=== PATIENT | male | born 1965 | race Caucasian/White ===

== ENCOUNTER 2018-07-19 05:39 | Outpatient (CLI) | payer OTHER ==
[~2018-07-19] VITALS: Ht 170.2 cm; Wt 73.0 kg
[~2018-07-19 05:39] MED LIST: CEPH-38 PO; NAPR-243 PO; TRM50T PO
[2018-07-19] MEDS ORDERED: OMEP20TA7 PO (15:18)
== END 2018-07-19 15:20 | disposition home or self-care (01) ==
LOC: PREOP 05:39
PROVIDERS: ATTEND Surgery
DX: Z01.818 Encounter for other preprocedural examination (principal)

== ENCOUNTER 2018-07-26 09:52 | Day surgery (SDC) | payer OTHER ==
[~2018-07-26] VITALS: Ht 170.2 cm; Wt 73.0 kg
[~2018-07-26 09:52] MED LIST changes: +OMEP20TA7 PO
[2018-07-26 10:15] VITALS: BP 138/76
[2018-07-26] MEDS ORDERED: LACTATED RINGERS 1,000 ML IV ONE (10:29)
[2018-07-26] MEDS ORDERED: HURRICAINE EXT TUBE (BENZOCAINE) XX PRN (10:30)
[2018-07-26] MEDS ORDERED: MIDAZOLAM 2 MG/2 ML (VERSED) VIAL ONE (10:39)
[2018-07-26] MEDS ORDERED: PROPOFOL INJECTION 50 ML IV ONE (10:39)
--- NOTE | 2018-07-26 10:41 | Progress Note-Pre Operative ---
Pre-Operative Progress Note H&P Reviewed The H&P was reviewed, patient examined and no changes noted. Date Seen by Provider: Jul 26, 2018 Time Seen by Provider: 10:40 Date H&P Reviewed: Jul 26, 2018 Time H&P Reviewed: 10:40 Pre-Operative Diagnosis: gerd, screening colonoscopy BERNARDA FAIR DO Jul 26, 2018 10:41
[2018-07-26] MEDS ORDERED: METO50TA15 PO (10:42)
--- NOTE | 2018-07-26 11:39 | Progress Note-Post Operative ---
Post-Operative Progess Note Surgeon (s)/Administrator Of Home Health (s) Surgeon BERNARDA FAIR DO Administrator Of Home Health: na Pre-Operative Diagnosis gerd, screening colonoscopy Post-Operative Diagnosis erosive esophagitis, hiatal hernia, gastrtitis, colon polyps Procedure & Operative Findings Date of Procedure 07/26/18 Procedure Performed/Findings egd c biopsies, colonoscopy c hot bx polypectomy x 9 Anesthesia Type per cake batter mixer Estimated Blood Loss Estimated blood loss (mL): na Specimens/Packing Specimens Removed antrum, body, ge junction, colon polyps BERNARDA FAIR DO Jul 26, 2018 11:39
[2018-07-26] MEDS ORDERED: SUCR1TAB36 PO (11:42)
--- NOTE | 2018-07-26 11:43 | Discharge Inst-Simple/Standard ---
Discharge Inst-Standard Discharge Medications New, Converted or Re-Newed RX: Transmitted to Pharmacy Patient Instructions/Follow Up Plan of Care/Instructions/FU: 2 weeks Tamanna Activity as Tolerated: Yes Discharge Diet: Regular Diet BERNARDA FAIR DO Jul 26, 2018 11:43
[2018-07-26 11:45] VITALS: BP 110/74
[2018-07-26 11:50] VITALS: BP 110/74
[2018-07-26 12:15] VITALS: BP 128/86
[2018-07-26 12:23] VITALS: BP 128/86
--- NOTE | 2018-07-26 12:23 | NUR ---
TAKING PO FLUIDS WITHOUT PROBLEM, PASSING FLATUS, AND DENIES COMPLAINTS. ALERT AND CHEERFUL. STATES HE IS READY FOR DISMISSAL.
--- NOTE | 2018-07-26 15:50 | Anesthesia-General Post-Op ---
MAC Patient Condition Mental Status/LOC: Same as Preop Cardiovascular: Satisfactory Nausea/Vomiting: Absent Respiratory: Satisfactory Pain: Controlled Complications: Absent Post Op Complications Complications None Follow Up Care/Instructions Patient Instructions None needed. Anesthesiology Discharge Order Discharge Order Patient was seen after the procedure and he was doing well, no complaints, stable vital signs, no apparent adverse anesthesia problems. PATY STOKES DO Jul 26, 2018 15:50
--- NOTE | 2018-07-26 16:21 | OPERATIVE REPORT ---
DATE OF SERVICE: 07/26/2018 PREOPERATIVE DIAGNOSES: Gastroesophageal reflux disease, screening colonoscopy. POSTOPERATIVE DIAGNOSES: Erosive esophagitis, hiatal hernia, gastritis, and colon polyps. PROCEDURES PERFORMED: Esophagogastroduodenoscopy with biopsies, colonoscopy with hot biopsy polypectomy x9. ANESTHESIA: Per BUTTER MELTER. ESTIMATED BLOOD LOSS: None. SPECIMENS REMOVED: Antrum, body, GE junction and colon polyps. INDICATIONS: The patient is a 53-year-old male who has reflux and need for screening colonoscopy. He understands risks and benefits of procedures and wished to proceed with procedure. Consent was signed in the chart. DESCRIPTION OF PROCEDURE: The patient was taken to the endoscopy suite, placed in left lateral recumbent position. Timeout was performed. Scope was inserted in mouth, down the esophagus, stomach and into the duodenum without difficulty. There were no polyps, masses or ulcerations within the duodenum. Scope was slowly retracted back into the stomach where it was further insufflated. Some erythematous changes consistent with gastritis present within the stomach. Biopsy of the antrum and body were obtained. Scope was retroflexed noting a hiatal hernia. No other pathology noted. Scope was returned to its normal position, slowly withdrawn to the distal esophagus, which had appearance of erosive esophagitis. Biopsy was obtained in the distal surface of the GE junction. Scope was then slowly retracted back to completely remove, noting no other pathology. Digital rectal exam was performed. There were no palpable polyps, masses or ulcerations. Scope was inserted in the rectum and advanced all the way to the cecum with minimal difficulty. Prep was adequate. Scope was then slowly retracted back. No polyps, mass or ulcerations within the cecum, ascending, transverse colon. In the descending colon, a small polyp was present, which hot biopsy polypectomy was performed. In the sigmoid colon, there were 6 polyps present, which hot biopsy polypectomy was performed. Scope was continued slowly retracted back. The rectum was also retroflexed noting two more small polyps, which hot biopsy polypectomy was performed on these 2 polyps. Scope was returned to its normal position, slowly withdrawn until completely removed. The patient tolerated procedure well without any complications, taken to recovery room in stable condition. RECOMMENDATIONS: The patient will be started on Carafate 1 g four times a day. We will consider switching omeprazole to Protonix depending on biopsies. The patient will need repeat endoscopy likely in 1 year after the EGD to reevaluate the distal esophagus and we would repeat colonoscopy in 1 to 3 years due to the number of polyps depending on the pathology results. Job ID: [id number] DocumentID: [id number] Dictated Date: 07/26/2018 11:42:00 [employer] Date: 07/26/2018 16:21:30 Dictated By: BERNARDA FAIR DO
== END 2018-07-26 12:23 | disposition home or self-care (01) ==
LOC: ENDO 09:52
PROVIDERS: ATTEND Surgery
DX: Z12.11 Encounter for screening for malignant neoplasm of colon (principal); K63.5 Polyp of colon; K62.1 Rectal polyp; K20.8 Other esophagitis; K44.9 Diaphragmatic hernia without obstruction or gangrene; K29.50 Unspecified chronic gastritis without bleeding; I10 Essential (primary) hypertension; Z87.891 Personal history of nicotine dependence; Z79.899 Other long term (current) drug therapy

== ENCOUNTER 2019-02-25 12:23 | Emergency (ER) | payer OTHER ==
[~2019-02-25] VITALS: Ht 170.2 cm; Wt 72.6 kg
[~2019-02-25 12:23] MED LIST changes: +METO50TA15 PO; +SUCR1TAB36 PO
[2019-02-25] MEDS ORDERED: KETOROLAC 30 MG/ML VIAL IVP STA (12:34)
[2019-02-25] MEDS ORDERED: LACTATED RINGERS 1,000 ML IV ONE ×2 (12:34→13:57)
--- NOTE | 2019-02-25 12:40 | ED Back Pain ---
General Chief Complaint: Back Problems Stated Complaint: BACK PAIN,POSS STONES Source of Information: Patient History of Present Illness Date Seen by Provider: Feb 25, 2019 Time Seen by Provider: 12:29 Initial Comments PT ARRIVES VIA POV FROM WORK--[employer] WENT TO [facility], AND WAS SENT HERE --NO CALL FROM THEM C/O SEVERE LEFT FLANK PAIN SINCE 11:00 AM TODAY C/O NAUSEA AND VOMITED JUST PRIOR TO ARRIVAL NO FEVER NO PROBLEMS URINATING NO HISTORY OF [facility] [place] SN[facility] TAKEN ANYTHING FOR PAIN Other Comments PCP: NONE Allergies and Home Medications Allergies Coded Allergies: codeine (Unverified Adverse Reaction, Mild, NAUSEA, 10/22/08) Home Medications Hydrocodone/Ibuprofen 1 Each Tablet, 1 EACH PO Q4H PRN for PAIN-MODERATE Prescribed by: RODO CLEVELAND on 02/25/191402 Nitrofurantoin Monohyd/M-Cryst 100 Mg Capsule, 100 MG PO BID Prescribed by: RODO CLEVELAND on 02/25/191402 Omeprazole 20 Mg Tablet.dr, 20 MG PO DAILY, (Reported) Ondansetron HCl 8 Mg Tablet, 8 MG PO Q6H Prescribed by: RODO CLEVELAND on 02/25/191402 Tamsulosin HCl 0.4 Mg Cap, 0.4 MG PO DAILY Prescribed by: RODO CLEVELAND on 02/25/191402 Patient Home Medication List Home Medication List Reviewed: Yes Review of Systems Constitutional: no symptoms reported Respiratory: no symptoms reported Cardiovascular: no symptoms reported Gastrointestinal: nausea, vomiting, other (LEFT FLANK PAIN ) Genitourinary: see HPI; No dysuria, No frequency, No hematuria, No hesitancy, No incontinence, No pain; other (LEFT FLANK PAIN ) Musculoskeletal: see HPI, back pain Skin: no symptoms reported Psychiatric/Neurological: No Symptoms Reported Past Yeaotnq-Qulxze-Spmpoy Hx Patient Social History Alcohol Use: Occasionally Uses Number of Drinks Today: 0 Recreational Drug Use: No Smoking Status: Current Everyday Smoker (1 PPD) Type Used: Cigarettes (1 PPD) Recent Foreign Travel: No Contact w/Someone Who Travel: No Recent Hopitalizations: No Seasonal Allergies Seasonal Allergies: No Past Medical History Surgeries: Yes (RIGHT KNEE/LEG FX/ORIF; EGD) Orthopedic Respiratory: No Cardiac: Yes (CURRENTLY NOT TAKING MEDS FOR B/P, STATES DOESNT HAVE MONEY FOR IT NOW) Hypertension Neurological: No Genitourinary: No Gastrointestinal: Yes Gastroesophageal Reflux Musculoskeletal: Yes (RIGHT KNEE/ LEG FX/ ORIF) Endocrine: No HEENT: No Cancer: No Psychosocial: No Integumentary: No Blood Disorders: No Physical Exam Vital Signs Vital Signs - First Documented 02/25/19 12:29 Temp 37.33757 Pulse 96 Resp 18 B/P (MAP) 161/97 (118) Pulse Ox 99 Capillary Refill : Height, Weight, BMI Height: 5'7.00" Weight: 161lbs. 0.0oz. 73.583170pa; 25.2 BMI Method:Stated General Appearance: No Apparent Distress, WD/WN, Other (HOLDING LEFT FLANK) Neck: Normal Inspection Cardiovascular: Regular Rate, Rhythm, No Edema, No Murmur Respiratory: Normal Breath Sounds, No Accessory Muscle Use, No Respiratory Distress Gastrointestinal: Normal Bowel Sounds, No Organomegaly, No Pulsatile Mass, Soft, Tenderness (LEFT FLANK) Back: CVA Tenderness (L) Extremity: Normal Capillary Refill, Normal Inspection, Normal Range of Motion, Non Tender, No Calf Tenderness, No Pedal Edema Neurologic/Psychiatric: Alert, Oriented x3, No Motor/Sensory Deficits, Normal Mood/Affect, 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-XII Norm as Tested Skin: Normal Color, Warm/Dry; No Ecchymosis Progress/Results/Core Measures Results/Orders Lab Results Laboratory Tests Test 02/25/19 12:40 02/25/19 12:50 Range/Units White Blood Count 9.7 4.3-11.0 10^3/uL Red Blood Count 4.43 4.35-5.85 10^6/uL Hemoglobin 14.0 13.3-17.7 G/DL Hematocrit 40 40-54 % Mean Corpuscular Volume 91 80-99 FL Mean Corpuscular Hemoglobin 32 25-34 PG Mean Corpuscular Hemoglobin Concent 35 32-36 G/DL Red Cell Distribution Width 13.9 10.0-14.5 % Platelet Count 422 H 130-400 10^3/uL Mean Platelet Volume 10.1 7.4-10.4 FL Neutrophils (%) (Auto) 59 42-75 % Lymphocytes (%) (Auto) 24 12-44 % Monocytes (%) (Auto) 13 H 0-12 % Eosinophils (%) (Auto) 3 0-10 % Basophils (%) (Auto) 1 0-10 % Neutrophils # (Auto) 5.8 1.8-7.8 X 10^3 Lymphocytes # (Auto) 2.4 1.0-4.0 X 10^3 Monocytes # (Auto) 1.2 H 0.0-1.0 X 10^3 Eosinophils # (Auto) 0.3 0.0-0.3 10^3/uL Basophils # (Auto) 0.1 0.0-0.1 10^3/uL Sodium Level 141 135-145 MMOL/L Potassium Level 4.1 3.6-5.0 MMOL/L Chloride Level 108 H 98-107 MMOL/L Carbon Dioxide Level 20 L 21-32 MMOL/L Anion Gap 13 5-14 MMOL/L Blood Urea Nitrogen 19 H 7-18 MG/DL Creatinine 1.33 H 0.60-1.30 MG/DL Estimat Glomerular Filtration Rate 56 BUN/Creatinine Ratio 14 Glucose Level 94 70-105 MG/DL Calcium Level 9.5 8.5-10.1 MG/DL Corrected Calcium 9.2 8.5-10.1 MG/DL Total Bilirubin 0.4 0.1-1.0 MG/DL Aspartate Amino Transf (AST/SGOT) 19 5-34 U/L Alanine Aminotransferase (ALT/SGPT) 25 0-55 U/L Alkaline Phosphatase 64 40-136 U/L Total Protein 7.6 6.4-8.2 GM/DL Albumin 4.4 3.2-4.5 GM/DL Amylase Level 78 25-125 U/L Lipase 21 8-78 U/L Urine Color YELLOW Urine Clarity CLEAR Urine pH 5 5-9 Urine Specific Barnum 1.025 H 1.016-1.022 Urine Protein 2+ H NEGATIVE Urine Glucose (UA) NEGATIVE NEGATIVE Urine Ketones NEGATIVE NEGATIVE Urine Nitrite NEGATIVE NEGATIVE Urine Bilirubin NEGATIVE NEGATIVE Urine Urobilinogen NORMAL NORMAL MG/DL Urine Leukocyte Esterase 1+ H NEGATIVE Urine RBC (Auto) 4+ H NEGATIVE Urine RBC 10-25 H /HPF Urine WBC RARE /HPF Urine Crystals NONE /LPF Urine Bacteria TRACE /HPF Urine Casts NONE /LPF Urine Mucus SMALL H /LPF Urine Culture Indicated NO My Orders Orders - RODO CLEVELAND DO Ct Abd/Pelvis Wo(Kidney Stone) (02/25/19 12:34) Amylase (02/25/19 12:34) Cbc With Automated Diff (02/25/19 12:34) Comprehensive Metabolic Panel (02/25/19 12:34) Lipase (02/25/19 12:34) Urinalysis (02/25/19 12:34) Acute Abd Series (02/25/19 12:34) Ed Iv/Invasive Line Start (02/25/19 12:34) Ed Iv/Invasive Line Start (02/25/19 12:34) Lactated Ringers (Lr 1000 Ml Iv Solution (02/25/19 12:34) Ondansetron Injection (Zofran Injectio (02/25/19 12:45) Ketorolac Injection (Toradol Injection) (02/25/19 12:34) Fentanyl Injection (Sublimaze Injection (02/25/19 14:00) Tamsulosin Capsule (Flomax Capsule) (02/25/19 14:00) Ondansetron Injection (Zofran Injectio (02/25/19 14:00) Ed Iv/Invasive Line Start (02/25/19 13:57) Lactated Ringers (Lr 1000 Ml Iv Solution (02/25/19 13:57) Medications Given in ED Vital Signs/I&O 02/25/19 02/25/19 12:29 15:10 Temp 37.91540 Pulse 96 84 Resp 18 18 B/P (MAP) 161/97 (118) 152/88 (109) Pulse Ox 99 99 Progress Progress Note : Progress Note TRANSIENT RELIEF WITH TORADOL GIVEN FENTANYL FOR PAIN WITH RELIEF OF PAIN NAUSEA CONTROLLED WITH ZOFRAN Diagnostic Imaging Comments ABDOMEN XRAYS--NO ACUTE PROCESS CT ABDOMEN/ PELVIS--4 MM DISTAL LEFT URETERAL CALCULUS, WITH MILD TO MODERATE LEFT HYDRONEPHROSIS, LEFT LUNG BASE NODULE, HIATAL HERNIA, BENIGN APPEARING LEFT ADRENAL ADENOMA PER RADIOLOGIST REPORTS AT 1352 Reviewed: Reviewed by Me Departure Impression Primary Impression: Left ureteral calculus Additional Impressions: Renal insufficiency LEFT LUNG NODULE NOTED ON CT Disposition: 01 HOME, SELF-CARE Condition: Improved Departure-Patient Inst. Referrals: NO,LOCAL PHYSICIAN (PCP) Primary Care Physician ERIKA BROWNLEE MD Patient Instructions: Acute Kidney Failure (DC), How to Strain Your Urine, Kidney Stones (DC), Pulmonary Nodule Add. Discharge Instructions: LOTS OF CLEAR LIQUIDS--DRINK ENOUGH SO YOU ARE URINATING EVERY 2 HOURS WHILE AWAKE STRAIN ALL URINE--RETURN ANY STONES TO DR. BROWNLEE'S OFFICE FOLLOW UP WITH DR. BROWNLEE IN 2-3 DAYS, RETURN TO ER IF SYMPTOMS WORSEN FOLLOW UP WITH DR OF CHOICE IN 1-2 WEEKS FOR FURTHER EVALUATION OF LUNG NODULE--LIST PROVIDED All discharge instructions reviewed with patient and/or family. Voiced understanding. Scripts Ondansetron HCl (Zofran) 8 Mg Tablet 8 MG PO Q6H for Nausea/Vomiting, #10 TAB Prov: RODO CLEVELAND DO 02/25/19 Nitrofurantoin Monohyd/M-Cryst (Macrobid 100 mg Capsule) 100 Mg Capsule 100 MG PO BID, #20 CAP Prov: RODO CLEVELAND DO 02/25/19 Hydrocodone/Ibuprofen (Hydrocodone-Ibuprofen 7.5-200) 1 Each Tablet 1 EACH PO Q4H PRN for PAIN-MODERATE for 3 Days, #20 TAB Prov: RODO CLEVELAND DO 02/25/19 Tamsulosin HCl (Flomax) 0.4 Mg Cap 0.4 MG PO DAILY, #10 CAP Prov: RODO CLEVELAND DO 02/25/19 Work/School Note: Local Medical Staff Listing RODO CLEVELAND DO Feb 25, 2019 12:40
[2019-02-25] MEDS ORDERED: ONDANSETRON 4 MG/2 ML (SDV) Z0FRAN IVP ONE ×2 (12:45→14:00)
[2019-02-25 12:48] LABS: BASOPHILS # (AUTO) 0.1 10^3/uL (0.0-0.1); BASOPHILS % (AUTO) 1 % (0-10); EOSINOPHILS # (AUTO) 0.3 10^3/uL (0.0-0.3); EOSINOPHILS % (AUTO) 3 % (0-10); HEMATOCRIT 40 % (40-54); LYMPHOCYTES # (AUTO) 2.4 X 10^3 (1.0-4.0); LYMPHOCYTES % (AUTO) 24 % (12-44); MEAN CORPUSCULAR HEMOGLOBIN 32 PG (25-34); MEAN CORPUSCULAR HGB CONC 35 G/DL (32-36); MEAN CORPUSCULAR VOLUME 91 FL (80-99); MEAN PLATELET VOLUME 10.1 FL (7.4-10.4); MONOCYTES # (AUTO) 1.2 X 10^3 (0.0-1.0); MONOCYTES % (AUTO) 13 % (0-12); NEUTROPHILS # (AUTO) 5.8 X 10^3 (1.8-7.8); NEUTROPHILS % (AUTO) 59 % (42-75); PLATELET COUNT 422 10^3/uL (130-400); RED CELL DISTRIBUTION WIDTH 13.9 % (10.0-14.5); WHITE BLOOD COUNT 9.7 10^3/uL (4.3-11.0)
[2019-02-25 13:00] LABS: BILIRUBIN,URINE NEGATIVE (NEGATIVE); CLARITY,URINE CLEAR; COLOR,URINE YELLOW; GLUCOSE, URINE (UA) NEGATIVE (NEGATIVE); KETONES,URINE NEGATIVE (NEGATIVE); LEUKOCYTE ESTERASE ,URINE 1+ (NEGATIVE); NITRITE,URINE NEGATIVE (NEGATIVE); PH,URINE 5 (5-9); PROTEIN,URINE 2+ (NEGATIVE); UROBILINOGEN,URINE NORMAL (NORMAL)
[2019-02-25 13:08] LABS: BACTERIA,URINE TRACE /HPF; WBC,URINE RARE /HPF
[2019-02-25 13:09] LABS: ALBUMIN 4.4 GM/DL (3.2-4.5); BILIRUBIN,TOTAL 0.4 MG/DL (0.1-1.0); CALCIUM 9.5 MG/DL (8.5-10.1); CREATININE SERUM 1.33 MG/DL (0.60-1.30); POTASSIUM 4.1 MMOL/L (3.6-5.0); TOTAL PROTEIN 7.6 GM/DL (6.4-8.2)
--- NOTE | 2019-02-25 13:31 | Diagnostic Imaging Report ---
Acute abdomen at 1:09. Indication: Left flank pain. The accompanying erect PA chest shows heart size to be within normal limits and stable when compared to 09/21/2009. The lungs are clear. There is no sign of failure, pneumonia or pleural effusion and there is no pneumoperitoneum identified. Supine and erect views of the abdomen were obtained. There is gas in both large and small bowel in a nonspecific fashion. There is no evidence for a bowel obstruction. There is no mass, organomegaly or pathological calcification evident. The osseous structures are intact. Impression: 1. The bowel gas pattern is nonspecific. There is no acute abnormality identified. 2. If clinical concern regarding an underlying abnormality persists, then CT of the abdomen pelvis would be recommended for further study. Dictated by: Dictated on workstation # [id number]
--- NOTE | 2019-02-25 13:32 | Diagnostic Imaging Report ---
PROCEDURE: CT urinary tract, rule out kidney stone. TECHNIQUE: Multiple contiguous axial images were obtained through the abdomen and pelvis without the use of intravenous contrast. Auto Exposure Controls were utilized during the CT exam to meet ALARA standards for radiation dose reduction. INDICATION: Posterior back pain. Nausea and vomiting. COMPARISON: None. FINDINGS: The heart is unremarkable. The included lung bases demonstrate a soft tissue nodule in the left lung base measuring 0.8 cm (image 2, series 2). A hiatal hernia is present. A 0.4 cm urolithiasis is seen in the distal left ureter just proximal to the left UVJ (image 83, series 2). Associated [id number] left-sided hydroureteronephrosis is seen. A 2 mm nonobstructing calculus is seen in the mid left kidney. No evidence of hydronephrosis or renal calculi is seen on the right. A nodule in the left adrenal gland measures 3.3 x 3.0 cm and measures -15 Hounsfield units, consistent with an adrenal adenoma. The right adrenal gland is unremarkable. The liver, spleen, and pancreas have a normal noncontrast CT appearance. There is no pathologically enlarged mesenteric or retroperitoneal adenopathy. The bowel loops are nondilated. The appendix is visualized in the right lower quadrant and has a normal appearance. There is no free fluid or free air. The osseous structures are age-appropriate. The bladder is decompressed. There is no free air, loculated collection, or adenopathy in the pelvis. IMPRESSION: 1. Urolithiasis in the distal left ureter measuring 0.4 cm with associated [id number] left-sided hydroureteronephrosis. 2. Nodule in the left lung base measuring 0.[address] chest on an outpatient basis to further evaluate. 3. Benign left adrenal adenoma. 4. Hiatal hernia. Dictated by: Dictated on workstation # [id number]
[2019-02-25] MEDS ORDERED: TAMSULOSIN 0.4 MG (FLOMAX) CAP PO SCH (14:00)
[2019-02-25] MEDS ORDERED: fentaNYL INJECTION 100 MCG/2 ML AMP IVP ONE (14:00)
[2019-02-25] MEDS ORDERED: NITR-65 PO (14:03)
[2019-02-25] MEDS ORDERED: HYDR-87 PO (14:03)
[2019-02-25] MEDS ORDERED: TAMS0.4C98 PO (14:03)
[2019-02-25] MEDS ORDERED: ONDA8TAB6 PO (14:03)
[2019-02-25 15:10] VITALS: BP 152/88
== END 2019-02-25 15:15 | disposition home or self-care (01) ==
LOC: EDUNIT# 12:23 → ER 12:24
DX: N13.2 Hydronephrosis with renal and ureteral calculous obstruction (principal); N28.9 Disorder of kidney and ureter, unspecified; R91.1 Solitary pulmonary nodule; I10 Essential (primary) hypertension; K21.9 Gastro-esophageal reflux disease without esophagitis; F17.210 Nicotine dependence, cigarettes, uncomplicated; Z88.5 Allergy status to narcotic agent; Z91.120 Patient's intentional underdosing of medication regimen due to financial hardship
CPT/HCPCS: 36415; 74022; 74176; 80053; 81000; 82150; 83690; 85025; 96361; 96374; 96375; 96376

== ENCOUNTER 2019-08-13 17:54 | Emergency (ER) | payer OTHER ==
[~2019-08-13] VITALS: Ht 167 cm; Wt 75.0 kg
[~2019-08-13 17:54] MED LIST changes: +HYDR-87 PO; +NITR-65 PO; +ONDA8TAB6 PO; +TMSL.4C PO
[2019-08-13] MEDS ORDERED: ASPIRIN 81 MG CHEW (CHILDREN'S ASA) ONE (17:55)
[2019-08-13] MEDS ORDERED: ONDANSETRON 4 MG/2 ML (SDV) Z0FRAN ONE (18:06)
[2019-08-13 18:08] LABS: BASOPHILS # (AUTO) 0.1 10^3/uL (0.0-0.1); BASOPHILS % (AUTO) 0 % (0-10); EOSINOPHILS % (AUTO) 0 % (0-10); HEMATOCRIT 42 % (40-54); HEMOGLOBIN 14.3 G/DL (13.3-17.7); LYMPHOCYTES # (AUTO) 1.3 X 10^3 (1.0-4.0); LYMPHOCYTES % (AUTO) 10 % (12-44); MEAN CORPUSCULAR HEMOGLOBIN 31 PG (25-34); MEAN CORPUSCULAR HGB CONC 34 G/DL (32-36); MEAN CORPUSCULAR VOLUME 91 FL (80-99); MEAN PLATELET VOLUME 10.2 FL (7.4-10.4); MONOCYTES # (AUTO) 0.7 X 10^3 (0.0-1.0); MONOCYTES % (AUTO) 5 % (0-12); NEUTROPHILS # (AUTO) 11.3 X 10^3 (1.8-7.8); NEUTROPHILS % (AUTO) 84 % (42-75); PLATELET COUNT 460 10^3/uL (130-400); RED CELL DISTRIBUTION WIDTH 13.9 % (10.0-14.5); WHITE BLOOD COUNT 13.4 10^3/uL (4.3-11.0)
[2019-08-13] MEDS ORDERED: ONDANSETRON 4 MG/2 ML (SDV) Z0FRAN IVP ONE (18:15)
[2019-08-13] MEDS ORDERED: ASPIRIN 81 MG CHEW (CHILDREN'S ASA) PO ONE (18:15)
[2019-08-13] MEDS ORDERED: NITROGLYCERIN 0.4 MG SL TABS BTL 25'S SL PRN (18:15)
[2019-08-13] MEDS ORDERED: fentaNYL INJECTION 100 MCG/2 ML AMP ONE (18:16)
[2019-08-13 18:20] LABS: PROTHROMBIN TIME PATIENT 13.2 SEC (12.2-14.7)
[2019-08-13 18:22] LABS: ALANINE AMINOTRANSFERASE 20 U/L (0-55); ALBUMIN 4.8 GM/DL (3.2-4.5); ALKALINE PHOSPHATASE 82 U/L (40-136); BILIRUBIN,TOTAL 0.6 MG/DL (0.1-1.0); BUN/CREATININE RATIO 14; CALCIUM 10.2 MG/DL (8.5-10.1); CARBON DIOXIDE 22 MMOL/L (21-32); CHLORIDE 103 MMOL/L (98-107); GFR ESTIMATED > 60; GLUCOSE 111 MG/DL (70-105); POTASSIUM 3.8 MMOL/L (3.6-5.0); SODIUM 139 MMOL/L (135-145); TOTAL PROTEIN 8.2 GM/DL (6.4-8.2)
[2019-08-13] MEDS ORDERED: fentaNYL INJECTION 100 MCG/2 ML AMP IVP ONE (18:30)
--- NOTE | 2019-08-13 18:32 | ED Abdominal Pain ---
General Chief Complaint: Abdominal/GI Problems Stated Complaint: CP Nursing Triage Note: PT SENT FROM [facility] W ABD PAIN AND EPIGASTRIC PAIN. PT HAD GI COCKTAIL AT URGENT CARE. PT STATES HAS BEEN VOMITING ALL DAY Sepsis Screen: No Definite Risk Source of Information: Patient Exam Limitations: No Limitations History of Present Illness Date Seen by Provider: Aug 13, 2019 Time Seen by Provider: 17:55 Initial Comments Patient arrives the ER by private conveyance with his significant other and chief complaint of waking up this morning with some pain in his epigastric and chest region. He has a history of acid reflux and takes Prilosec daily. He does not have a history of coronary disease but he does smoke about a pack cigarettes per day. He does not take anything for blood pressure hyperlipidemia. No primary familial early onset coronary artery disease. He went to urgent care and they did an EKG which they said was unremarkable and gave him a GI cocktail which she says made it worse. He's had nausea with vomiting all day. He has not had an ything for nausea. He had vomiting on his way over area and no blood in the vomitus. No diarrhea or abdominal surgeries. Last oral intake was dinner last night smoked sausage. Patient had a colonoscopy and upper endoscopy a year ago by Dr. Fair which rev ealed some polyps and he has follow-up in the next year or so. Negative upper GI. Allergies and Home Medications Allergies Coded Allergies: codeine (Unverified Adverse Reaction, Mild, NAUSEA, 10/22/08) Home Medications Hydrocodone/Ibuprofen 1 Each Tablet, 1 EACH PO Q4H PRN for PAIN-MODERATE Prescribed by: RODO CLEVELAND on 02/25/191402 Nitrofurantoin Monohyd/M-Cryst 100 Mg Capsule, 100 MG PO BID Prescribed by: RODO CLEVELAND on 02/25/191402 Omeprazole 20 Mg Tablet.dr, 20 MG PO DAILY, (Reported) Ondansetron HCl 8 Mg Tablet, 8 MG PO Q6H Prescribed by: RODO CLEVELAND on 02/25/191402 Tamsulosin HCl 0.4 Mg Cap, 0.4 MG PO DAILY Prescribed by: RODO CLEVELAND on 02/25/191402 Patient Home Medication List Home Medication List Reviewed: Yes Review of Systems Review of Systems Constitutional: No chills, No diaphoresis EENTM: No Blurred Vision, No Double Vision Respiratory: Denies Shortness of Air Cardiovascular: See HPI, Chest Pain; Denies Edema Gastrointestinal: See HPI, Abdominal Pain (epigastric region); Denies Con stipated, Denies Diarrhea; Nausea, Poor Appetite, Poor Fluid Intake Genitourinary: Denies Burning, Denies Discharge Musculoskeletal: No back pain, No joint pain Skin: No pruritus, No rash Psychiatric/Neurological: Denies Headache, Denies Numbness All Other Systems Reviewed Negative Unless Noted: Yes Past Pkizdag-Iamloy-Nswped Hx Patient Social History Alcohol Use: Occasionally Uses Alcohol Beverage of Choice: Beer (6-12 pack per week.) Recreational Drug Use: No Smoking Status: Current Everyday Smoker Type Used: Cigarettes Recent Foreign Travel: No Contact w/Someone Who Travel: No Recent Infectious Disease Expo: No Recent Hopitalizations: No Physical Abuse: No Sexual Abuse: No Seasonal Allergies Seasonal Allergies: No Past Medical History Surgeries: Yes (RIGHT KNEE/LEG FX/ORIF; EGD) Orthopedic Respiratory: No Cardiac: Yes (CURRENTLY NOT TAKING MEDS FOR B/P, STATES DOESNT HAVE MONEY FOR IT NOW) Hypertension Neurological: No Genitourinary: No Gastrointestinal: Yes Gastroesophageal Reflux Musculoskeletal: Yes (RIGHT KNEE/ LEG FX/ ORIF) Endocrine: No HEENT: No Cancer: No Psychosocial: No Integumentary: No Blood Disorders: No Physical Exam Vital Signs Vital Signs - First Documented 08/13/19 17:55 Temp 37.2 Pulse 109 Resp 18 B/P (MAP) 156/97 (116) Pulse Ox 99 Capillary Refill : Less Than 3 Seconds Height/Weight/BMI Height: 5'7.00" Weight: 160lbs. 0.0oz. [id number]; 26.00 BMI Method:Stated General Appearance: WD/WN, mild distress HEENT: PERRL/EOMI, pharynx normal Neck: full range of motion, supple, normal inspection Respiratory: chest non-tender, lungs clear, normal breath sounds, no respiratory distress, no accessory muscle use Cardiovascular: normal peripheral pulses, regular rate, rhythm Peripheral Pulses: 2+ Radial Pulses (R), 2+ Radial Pulses (L) Gastrointestinal: normal bowel sounds, soft, tenderness (epigastric and right upper quadrant but negative for Kennedy sign.), other (negative for mesenteric signs, psoas sign or heeltap tenderness.) Extremities: normal inspection, no pedal edema, normal capillary refill Neurologic/Psychiatric: alert, normal mood/affect, oriented x 3 Skin: normal color, warm/dry Progress/Results/Core Measures Results/Orders Lab Results Laboratory Tests Test 08/13/19 17:55 08/13/19 20:30 Range/Units White Blood Count 13.4 H 4.3-11.0 10^3/uL Red Blood Count 4.65 4.35-5.85 10^6/uL Hemoglobin 14.3 13.3-17.7 G/DL Hematocrit 42 40-54 % Mean Corpuscular Volume 91 80-99 FL Mean Corpuscular Hemoglobin 31 25-34 PG Mean Corpuscular Hemoglobin Concent 34 32-36 G/DL Red Cell Distribution Width 13.9 10.0-14.5 % Platelet Count 460 H 130-400 10^3/uL Mean Platelet Volume 10.2 7.4-10.4 FL Neutrophils (%) (Auto) 84 H 42-75 % Lymphocytes (%) (Auto) 10 L 12-44 % Monocytes (%) (Auto) 5 0-12 % Eosinophils (%) (Auto) 0 0-10 % Basophils (%) (Auto) 0 0-10 % Neutrophils # (Auto) 11.3 H 1.8-7.8 X 10^3 Lymphocytes # (Auto) 1.3 1.0-4.0 X 10^3 Monocytes # (Auto) 0.7 0.0-1.0 X 10^3 Eosinophils # (Auto) 0.0 0.0-0.3 10^3/uL Basophils # (Auto) 0.1 0.0-0.1 10^3/uL Prothrombin Time 13.2 12.2-14.7 SEC INR Comment 1.0 0.8-1.4 Activated Partial Thromboplast Time 26 24-35 SEC Sodium Level 139 135-145 MMOL/L Potassium Level 3.8 3.6-5.0 MMOL/L Chloride Level 103 98-107 MMOL/L Carbon Dioxide Level 22 21-32 MMOL/L Anion Gap 14 5-14 MMOL/L Blood Urea Nitrogen 14 7-18 MG/DL Creatinine 1.00 0.60-1.30 MG/DL Estimat Glomerular Filtration Rate > 60 BUN/Creatinine Ratio 14 Glucose Level 111 H 70-105 MG/DL Calcium Level 10.2 H 8.5-10.1 MG/DL Corrected Calcium 8.5-10.1 MG/DL Magnesium Level 2.0 1.6-2.4 MG/DL Total Bilirubin 0.6 0.1-1.0 MG/DL Aspartate Amino Transf (AST/SGOT) 19 5-34 U/L Alanine Aminotransferase (ALT/SGPT) 20 0-55 U/L Alkaline Phosphatase 82 40-136 U/L Myoglobin 48.6 10.0-92.0 NG/ML Troponin I < 0.028 < 0.028 <0.028 NG/ML Total Protein 8.2 6.4-8.2 GM/DL Albumin 4.8 H 3.2-4.5 GM/DL Lipase 16 8-78 U/L My Orders Orders - EDIL LONDON Ondansetron Injection (Zofran Injectio (08/13/19 18:06) Fentanyl Injection (Sublimaze Injection (08/13/19 18:30) Lipase (08/13/19 18:34) Ed Iv/Invasive Line Start (08/13/19 18:34) Lactated Ringers (Lr 1000 Ml Iv Solution (08/13/19 18:34) Ct Abdomen/Pelvis W (08/13/19 18:34) Iohexol Injection (Omnipaque 350 Mg/Ml 1 (08/13/19 19:00) Received Contrast (Hold Metformin- Contr (08/13/19 19:00) Ns (Ivpb) (Sodium Chloride 0.9% Ivpb Bag (08/13/19 19:00) Troponin I (08/13/19 20:15) Medications Given in ED Current Medications Medications Dose Ordered Sig/Jasmin Route Start Time Stop Time Status Last Admin Dose Admin Aspirin 81 mg STK-MED ONCE .ROUTE 08/13/19 17:55 08/13/19 18:00 DC 08/13/19 18:02 324 MG Fentanyl Citrate 100 mcg STK-MED ONCE .ROUTE 08/13/19 18:16 08/13/19 18:21 DC 08/13/19 18:24 50 MCG Iohexol 100 ml ONCE ONCE IV 08/13/19 19:00 08/13/19 19:01 DC 08/13/19 19:11 94 ML Lactated Ringer's 1,000 ml @ 0 mls/hr Q0M ONCE IV 08/13/19 18:34 08/13/19 18:35 DC 08/13/19 18:45 1,000 MLS/HR Nitroglycerin 0.4 mg UD PRN SL 08/13/19 18:15 08/13/19 18:15 0.4 MG Ondansetron HCl 8 mg ONCE ONCE IVP 08/13/19 18:15 08/13/19 18:16 DC 08/13/19 18:14 8 MG Sodium Chloride 100 ml ONCE ONCE IV 08/13/19 19:00 08/13/19 19:01 DC 08/13/19 19:11 80 ML Vital Signs/I&O 08/13/19 17:55 Temp 37.2 Pulse 109 Resp 18 B/P (MAP) 156/97 (116) Pulse Ox 99 Blood Pressure Mean: 116 Progress Progress Note #1: Time: 18:31 Progress Note GI cocktail made his pain worse. Peptic ulcer disease, pancreatitis, gallbladder disease, atypical angina?. Gave him 4 tablets of aspirin to chew and swallow and trial nitroglycerin which did nothing for his pain. He has a history of allergy to codeine so to the morphine we'll give him some fentanyl. Pain is much better so plan to get a CT of his abdomen pelvis as well as lipase. Progress Note #2: Time: 20:12 Progress Note The patient's pain and nausea are almost completely resolved. We have offered observation stay versus outpatient follow-up with Dr. Fair who did his endoscopy last year. The patient says he would prefer to go home. We will repeat a delta troponin and if that is negative allow him to follow up outpatient with Dr. Fair to workup gallbladder and upper GI for possible PUD. We did mention his pulmonary nodule that he would need to follow-up with his primary care doctor in the next month or 2 about this. Initial ECG Impression Date: Aug 13, 2019 Initial ECG Impression Time: 17:57 Initial ECG Rate: 102 Initial ECG Rhythm: S.Tach Initial ECG Intervals: QT (496) Initial ECG Impression: Normal Comment Sinus tachycardia without clinically relevant ST elevation or depression. Diagnostic Imaging Diagonstic Imaging: Xray Plain Films/CT/US/NM/MRI: chest (1v) Comments NAME: FELIPE LÓPEZ Alexandra [employer] REC#: [id number] PT STATUS: REG ER : 1965 PHYSICIAN: MALA MISHRA ADMIT DATE: 08/13/19/ER Signed Date of Exam:08/13/19 CHEST 1 VIEW, AP/PA ONLY INDICATION: Chest pain. COMPARISON: Prior examination from 02/25/2019. EXAMINATION: Single view of the chest was obtained. FINDINGS: The heart size, mediastinal configuration, and pulmonary vascularity are within normal limits. There is no pleural effusion, pneumothorax or pneumonia. The osseous structures are unremarkable. IMPRESSION: No acute cardiopulmonary abnormality. Dictated by: Dictated on workstation # [id number] Dict: 08/13/19 1848 Trans: 08/13/191902 [facility] [id number] Interpreted by: SARAHI MUSA MD Electronically signed by: SARAHI MUSA MD 08/13/191902 Reviewed: Reviewed by Co Diagonstic Imaging: CT Plain Films/CT/US/NM/MRI: abdomen, pelvis Comments [facility] [place] NAME: FELIPE LÓPEZ [employer] REC#: [id number] PT STATUS: REG ER : 1965 PHYSICIAN: EDIL LONDON MD ADMIT DATE: 08/13/19/ER Draft Date of Exam:08/13/19 CT ABDOMEN/PELVIS W PROCEDURE: CT abdomen and pelvis with contrast. TECHNIQUE: Multiple contiguous axial images were obtained through the abdomen and pelvis after administration of intravenous contrast. Auto Exposure Controls were utilized during the CT exam to meet ALARA standards for radiation dose reduction. INDICATION: Epigastric pain and vomiting Comparison is made with prior examination from 02/25/2019. FINDINGS: The heart size is normal. The previously seen nodular density in the left lung base which measured 8 mm now measures 3 mm. This may be due to differences in slice location. The mass definitely, however, has not gotten larger. The lung bases are otherwise clear. There is a hiatal hernia. Liver is normal in size. There is a tiny cyst in the right lobe of liver. Gallbladder is unremarkable. There is no biliary duct dilatation. Spleen is small. The pancreas is unremarkable. Note is again made of a low-density left adrenal mass suspect for adrenal adenoma. The kidneys are normal in appearance. The aorta is nonaneurysmal. The bowel gas pattern is nonspecific. The appendix is normal. There is no free air. There is no ascites. There are no focal inflammatory changes. Bladder is normal. There is no pelvic mass, adenopathy or free fluid. There are mild degenerative changes in the spine. IMPRESSION: A 3 mm nodule in the left lung base. Hiatal hernia. Tiny right hepatic cysts No other acute abnormality in the abdomen or pelvis. Dictated on workstation # [id number] Dict: 08/13/191922 Trans: 08/13/191944 [facility] [id number] Interpreted by: SARAHI MUSA MD Electronically signed by: Reviewed: Reviewed by Me Departure Impression Primary Impression: Epigastric abdominal pain Disposition: HOME, SELF-CARE Condition: Improved Departure-Patient Inst. Decision time for Depature: 21:01 Referrals: BERNARDA FAIR DO NO,LOCAL PHYSICIAN (PCP) Primary Care Physician Patient Instructions: Acute Abdomen (Belly Pain) Add. Discharge Instructions: I suspect your having inflammation and irritation of the lining of your stomach or possibly an irritated gallbladder. Dr. Fair can help you work this up over the next week or 2. Return to the ER if you're not able to control your pain with the medicines prescribed plus Tylenol and ibuprofen. Continue taking the Prilosec 20 mg twice a day. Carafate 1 tablet half an hour prior to meals and at bedtime for a total of 4 tablets a day for the next 2 weeks to protect your stomach lining. If you have nausea take one tablet of Zofran every 6 hours as needed. If you have fevers especially above 102.5 Fahrenheit then I would ask you return to the ER. All discharge instructions reviewed with patient and/or family. Voiced understanding. Scripts Ondansetron (Ondansetron Odt) 4 Mg Tab.rapdis 4 MG PO Q6H PRN for NAUSEA/VOMITING-1ST LINE, #15 TAB 0 Refills Prov: EDIL LONDON 08/13/19 Sucralfate (Carafate) 1 Gm Tablet 1 GM PO QIDACHS for 14 Days, #56 TAB 0 Refills Prov: EDIL LONDON 08/13/19 Omeprazole (Omeprazole) 20 Mg Capsule.dr 20 MG PO BID for 30 Days, #60 CAP 0 Refills Prov: EDIL LONDON 08/13/19 Copy Copies To 1: BERNARDA FAIR DO EDIL LONDON Aug 13, 2019 18:32
[2019-08-13] MEDS ORDERED: LACTATED RINGERS 1,000 ML IV ONE (18:34)
--- NOTE | 2019-08-13 18:51 | Diagnostic Imaging Report ---
INDICATION: Chest pain. COMPARISON: Prior examination from 02/25/2019. EXAMINATION: Single view of the chest was obtained. FINDINGS: The heart size, mediastinal configuration, and pulmonary vascularity are within normal limits. There is no pleural effusion, pneumothorax or pneumonia. The osseous structures are unremarkable. IMPRESSION: No acute cardiopulmonary abnormality. Dictated by: Dictated on workstation # [id number]
[2019-08-13] MEDS ORDERED: IOHEXOL 350 MG/ML 100 ML (OMNIPAQUE 350) VIAL IV ONE (19:00)
[2019-08-13] MEDS ORDERED: NS 100 ML (IVPB) BAG IV ONE (19:00)
[2019-08-13] MEDS ORDERED: HOLD METFORMIN - RECEIVED CONTRAST 20 ML VIAL IV SCH (19:00)
--- NOTE | 2019-08-13 19:46 | Diagnostic Imaging Report ---
PROCEDURE: CT abdomen and pelvis with contrast. TECHNIQUE: Multiple contiguous axial images were obtained through the abdomen and pelvis after administration of intravenous contrast. Auto Exposure Controls were utilized during the CT exam to meet ALARA standards for radiation dose reduction. INDICATION: Epigastric pain and vomiting Comparison is made with prior examination from 02/25/2019. FINDINGS: The heart size is normal. The previously seen nodular density in the left lung base which measured 8 mm now measures 3 mm. This may be due to differences in slice location. The mass definitely, however, has not gotten larger. The lung bases are otherwise clear. There is a hiatal hernia. Liver is normal in size. There is a tiny cyst in the right lobe of liver. Gallbladder is unremarkable. There is no biliary duct dilatation. Spleen is small. The pancreas is unremarkable. Note is again made of a low-density left adrenal mass suspect for adrenal adenoma. The kidneys are normal in appearance. The aorta is nonaneurysmal. The bowel gas pattern is nonspecific. The appendix is normal. There is no free air. There is no ascites. There are no focal inflammatory changes. Bladder is normal. There is no pelvic mass, adenopathy or free fluid. There are mild degenerative changes in the spine. IMPRESSION: A 3 mm nodule in the left lung base. Hiatal hernia. Tiny right hepatic cysts No other acute abnormality in the abdomen or pelvis. Dictated by: Dictated on workstation # [id number]
[2019-08-13] MEDS ORDERED: ONDA4TAB11 PO (21:08)
[2019-08-13] MEDS ORDERED: SUCR1TAB36 PO (21:08)
[2019-08-13] MEDS ORDERED: OMEP20CA18 PO (21:08)
[2019-08-13 21:40] VITALS: BP 135/90
== END 2019-08-13 21:40 | disposition home or self-care (01) ==
LOC: ER 17:54 → EDUNIT# 17:54 → ER 21:40
DX: R10.13 Epigastric pain (principal); K21.9 Gastro-esophageal reflux disease without esophagitis; F17.210 Nicotine dependence, cigarettes, uncomplicated; Z88.5 Allergy status to narcotic agent
CPT/HCPCS: 36415; 71045; 74177; 80053; 83690; 83735; 83874; 84484; 85025; 85610; 85730; 93005; 93041

== ENCOUNTER 2019-08-15 23:59 | Observation (INO) | payer OTHER ==
[~2019-08-15] VITALS: Ht 167.4 cm; Wt 73.4 kg
[~2019-08-15 23:59] MED LIST changes: +OMEP20CA18 PO; +ONDA4TAB11 PO
[2019-08-16] VITALS (10 sets, daily range): BP systolic 73–127; BP diastolic 41–79
[2019-08-16 00:30] LABS: BASOPHILS # (AUTO) 0.1 10^3/uL (0.0-0.1); BASOPHILS % (AUTO) 1 % (0-10); EOSINOPHILS # (AUTO) 0.3 10^3/uL (0.0-0.3); EOSINOPHILS % (AUTO) 2 % (0-10); HEMATOCRIT 39 % (40-54); HEMOGLOBIN 13.3 G/DL (13.3-17.7); LYMPHOCYTES # (AUTO) 2.6 X 10^3 (1.0-4.0); LYMPHOCYTES % (AUTO) 16 % (12-44); MEAN CORPUSCULAR HEMOGLOBIN 31 PG (25-34); MEAN CORPUSCULAR HGB CONC 34 G/DL (32-36); MEAN CORPUSCULAR VOLUME 92 FL (80-99); MEAN PLATELET VOLUME 10.5 FL (7.4-10.4); MONOCYTES # (AUTO) 1.6 X 10^3 (0.0-1.0); MONOCYTES % (AUTO) 10 % (0-12); NEUTROPHILS # (AUTO) 11.2 X 10^3 (1.8-7.8); NEUTROPHILS % (AUTO) 72 % (42-75); PLATELET COUNT 419 10^3/uL (130-400); RED CELL DISTRIBUTION WIDTH 13.8 % (10.0-14.5); WHITE BLOOD COUNT 15.6 10^3/uL (4.3-11.0)
[2019-08-16] MEDS ORDERED: ONDANSETRON 4 MG/2 ML (SDV) Z0FRAN IVP ONE (00:30)
[2019-08-16] MEDS ORDERED: fentaNYL INJECTION 100 MCG/2 ML AMP IVP ONE (00:30)
[2019-08-16] MEDS ORDERED: FAMOTIDINE 20MG/2ML IV (PEPCID) IVP ONE (00:30)
[2019-08-16 00:42] LABS: ALANINE AMINOTRANSFERASE 20 U/L (0-55); ALBUMIN 4.3 GM/DL (3.2-4.5); ALKALINE PHOSPHATASE 62 U/L (40-136); BILIRUBIN,TOTAL 0.4 MG/DL (0.1-1.0); BUN/CREATININE RATIO 16; CALCIUM 9.4 MG/DL (8.5-10.1); CARBON DIOXIDE 21 MMOL/L (21-32); CHLORIDE 105 MMOL/L (98-107); GFR ESTIMATED > 60; GLUCOSE 110 MG/DL (70-105); LIPASE 20 U/L (8-78); POTASSIUM 3.6 MMOL/L (3.6-5.0); SODIUM 140 MMOL/L (135-145); TOTAL PROTEIN 7.2 GM/DL (6.4-8.2)
[2019-08-16 00:59] LABS: BAND NEUTROPHILS 2 %; LYMPHOCYTES % (MANUAL) 16 %; MONOCYTES % (MANUAL) 9 %; NEUTROPHILS % (MANUAL) 73 %; RBC MORPH NORMAL
[2019-08-16 01:19] LABS: BILIRUBIN,URINE NEGATIVE (NEGATIVE); CLARITY,URINE CLEAR; COLOR,URINE YELLOW; GLUCOSE, URINE (UA) NEGATIVE (NEGATIVE); KETONES,URINE TRACE (NEGATIVE); LEUKOCYTE ESTERASE ,URINE NEGATIVE (NEGATIVE); NITRITE,URINE NEGATIVE (NEGATIVE); PROTEIN,URINE NEGATIVE (NEGATIVE)
[2019-08-16 01:26] LABS: BACTERIA,URINE FEW /HPF; SQUAMOUS EPITHELIAL CELL,UR 0-2 /HPF
[2019-08-16] MEDS ORDERED: morphine INJ 10 MG/ML 1ML (SYR OR VIAL) IVP STA (01:33)
--- NOTE | 2019-08-16 01:42 | ED Abdominal Pain ---
General Chief Complaint: Abdominal/GI Problems Stated Complaint: ABD PAIN Nursing Triage Note: C/O ABD PAIN AND NAUSEA STARTED AT 1945 THSI EVENING AFTER TAKING ZOFRAN AT HOME. Sepsis Screen: No Definite Risk Source of Information: Patient, Old Records Exam Limitations: No Limitations History of Present Illness Date Seen by Provider: Aug 16, 2019 Time Seen by Provider: 00:09 Initial Comments This 54-year-old man presents to the emergency room with complaints of upper abdominal pain and vomiting that started around 18:00 tonight. He had similar episodes in recent days and was seen in the emergency room on August 13. He had a thorough workup at that time and was ultimately discharged. Workup included CT of the abdomen and pelvis and a cardiac rule out. Pain seems to be most focused in the epigastrium where he is tender just inferior to the xiphoid. He has a history of hiatal hernia, erosive esophagitis, gastritis, colon polyps, and GERD and intends to follow-up with Dr. Nolen. He has been taking an antacid therapy but continues to struggle with pain. He really felt fairly well yesterday except for some mild nausea symptoms came back today more severe than they were on August 13. He denies diarrhea has not had a bowel movement since August 13. He is afebrile. He reports drinking about a 12 pack of beer per week. He has had no alcohol since Wednesday. Allergies and Home Medications Allergies Coded Allergies: codeine (Unverified Adverse Reaction, Mild, NAUSEA, 08/16/19) Home Medications Hydrocodone/Ibuprofen 1 Each Tablet, 1 EACH PO Q4H PRN for PAIN-MODERATE Prescribed by: RODO CLEVELAND on 02/25/19 140 Nitrofurantoin Monohyd/M-Cryst 100 Mg Capsule, 100 MG PO BID Prescribed by: RODO CLEVELAND on 02/25/191402 Omeprazole 20 Mg Tablet.dr, 20 MG PO DAILY, (Reported) Omeprazole 20 Mg Capsule.dr, 20 MG PO BID Prescribed by: EDIL LONDON on 08/13/192107 Ondansetron 4 Mg Tab.rapdis, 4 MG PO Q6H PRN for NAUSEA/VOMITING-1ST LINE Prescribed by: EDIL LONDON on 08/13/192107 Ondansetron HCl 8 Mg Tablet, 8 MG PO Q6H Prescribed by: RODO CLEVELAND on 02/25/19 1403 Sucralfate 1 Gm Tablet, 1 GM PO QIDACHS Prescribed by: EDIL LONDON on 08/13/192107 Tamsulosin HCl 0.4 Mg Cap, 0.4 MG PO DAILY Prescribed by: RODO CLEVELAND on 02/25/19 1403 Patient Home Medication List Home Medication List Reviewed: Yes Review of Systems Review of Systems Constitutional: no symptoms reported EENTM: No Symptoms Reported Respiratory: No Symptoms Reported Cardiovascular: No Symptoms Reported Gastrointestinal: See HPI Genitourinary: No Symptoms Reported Musculoskeletal: no symptoms reported Skin: no symptoms reported Psychiatric/Neurological: No Symptoms Reported Endocrine: No Symptoms Reported Past Ecazlhz-Hgcofl-Sbhpbo Hx Past Med/Social Hx: Reviewed Nursing Past Med/Soc Hx Patient Social History Alcohol Use: Regular Use Number of Drinks Today: AA Alcohol Beverage of Choice: Beer Recreational Drug Use: No Smoking Status: Current Everyday Smoker Type Used: Cigarettes Recent Foreign Travel: No Contact w/Someone Who Travel: No Recent Infectious Disease Expo: No Recent Hopitalizations: No Physical Abuse: No Sexual Abuse: No Mistreated: No Fear: No Seasonal Allergies Seasonal Allergies: No Past Medical History Surgeries: Yes (RIGHT KNEE/LEG FX/ORIF; EGD) Orthopedic Respiratory: No Cardiac: Yes (CURRENTLY NOT TAKING MEDS FOR B/P, STATES DOESNT HAVE MONEY FOR IT NOW) Hypertension Neurological: No Genitourinary: No Gastrointestinal: Yes (gastritis, erosive esophagitis) Gastroesophageal Reflux, Polyps, Hiatal Hernia Musculoskeletal: Yes (RIGHT KNEE/ LEG FX/ ORIF) Endocrine: No HEENT: No Cancer: No Psychosocial: No Integumentary: No Blood Disorders: No Physical Exam Vital Signs Vital Signs - First Documented 08/16/19 00:11 Temp 38.0 Pulse 92 Resp 24 B/P (MAP) 136/80 (98) Pulse Ox 100 O2 Delivery Room Air Capillary Refill : Less Than 3 Seconds Height/Weight/BMI Height: 5'7.00" Weight: 160lbs. 0.0oz. 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, no motor/sensory deficits, alert, normal mood/affect, oriented x 3 Skin: normal color, warm/dry Progress/Results/Core Measures Results/Orders Lab Results Laboratory Tests Test 08/16/19 00:15 08/16/19 01:10 Range/Units White Blood Count 15.6 H 4.3-11.0 10^3/uL Red Blood Count 4.24 L 4.35-5.85 10^6/uL Hemoglobin 13.3 13.3-17.7 G/DL Hematocrit 39 L 40-54 % Mean Corpuscular Volume 92 80-99 FL Mean Corpuscular Hemoglobin 31 25-34 PG Mean Corpuscular Hemoglobin Concent 34 32-36 G/DL Red Cell Distribution Width 13.8 10.0-14.5 % Platelet Count 419 H 130-400 10^3/uL Mean Platelet Volume 10.5 H 7.4-10.4 FL Neutrophils (%) (Auto) 72 42-75 % Lymphocytes (%) (Auto) 16 12-44 % Monocytes (%) (Auto) 10 0-12 % Eosinophils (%) (Auto) 2 0-10 % Basophils (%) (Auto) 1 0-10 % Neutrophils # (Auto) 11.2 H 1.8-7.8 X 10^3 Lymphocytes # (Auto) 2.6 1.0-4.0 X 10^3 Monocytes # (Auto) 1.6 H 0.0-1.0 X 10^3 Eosinophils # (Auto) 0.3 0.0-0.3 10^3/uL Basophils # (Auto) 0.1 0.0-0.1 10^3/uL Neutrophils % (Manual) 73 % Lymphocytes % (Manual) 16 % Monocytes % (Manual) 9 % Band Neutrophils 2 % Blood Morphology Comment NORMAL Sodium Level 140 135-145 MMOL/L Potassium Level 3.6 3.6-5.0 MMOL/L Chloride Level 105 98-107 MMOL/L Carbon Dioxide Level 21 21-32 MMOL/L Anion Gap 14 5-14 MMOL/L Blood Urea Nitrogen 16 7-18 MG/DL Creatinine 1.00 0.60-1.30 MG/DL Estimat Glomerular Filtration Rate > 60 BUN/Creatinine Ratio 16 Glucose Level 110 H 70-105 MG/DL Calcium Level 9.4 8.5-10.1 MG/DL Corrected Calcium 9.2 8.5-10.1 MG/DL Total Bilirubin 0.4 0.1-1.0 MG/DL Aspartate Amino Transf (AST/SGOT) 19 5-34 U/L Alanine Aminotransferase (ALT/SGPT) 20 0-55 U/L Alkaline Phosphatase 62 40-136 U/L Troponin I < 0.028 <0.028 NG/ML C-Reactive Protein High Sensitivity 0.10 0.00-0.50 MG/DL Total Protein 7.2 6.4-8.2 GM/DL Albumin 4.3 3.2-4.5 GM/DL Lipase 20 8-78 U/L Urine Color YELLOW Urine Clarity CLEAR Urine pH 8.0 5-9 Urine Specific [place] 1.020 1.016-1.022 Urine Protein NEGATIVE NEGATIVE Urine Glucose (UA) NEGATIVE NEGATIVE Urine Ketones TRACE H NEGATIVE Urine Nitrite NEGATIVE NEGATIVE Urine Bilirubin NEGATIVE NEGATIVE Urine Urobilinogen 0.2 < = 1.0 MG/DL Urine Leukocyte Esterase NEGATIVE NEGATIVE Urine RBC (Auto) NEGATIVE NEGATIVE Urine RBC NONE /HPF Urine WBC NONE /HPF Urine Squamous Epithelial Cells 0-2 /HPF Urine Crystals NONE /LPF Urine Bacteria FEW H /HPF Urine Casts NONE /LPF Urine Mucus MODERATE H /LPF Urine Culture Indicated NO My Orders Orders - JUANITO PACE MD Cbc With Automated Diff (08/16/19 00:19) Comprehensive Metabolic Panel (08/16/19 00:19) Lipase (08/16/19 00:19) Troponin I (08/16/19 00:19) Ed Iv/Invasive Line Start (08/16/19:19) Ekg Tracing (08/16/19:19) Monitor-Rhythm Ecg Trace Only (08/16/19 00:19) Famotidine Injection (Pepcid Injection) (08/16/19 00:30) Ondansetron Injection (Zofran Injectio (08/16/19 00:30) Fentanyl Injection (Sublimaze Injection (08/16/19 00:30) Manual Differential (08/16/19 00:15) Ua Culture If Indicated (08/16/19 00:39) Hs C Reactive Protein (08/16/19 01:04) Morphine Injection (Morphine Injection (08/16/19 01:33) Acute Abd Series (08/16/19 01:33) Medications Given in ED Current Medications Medications Dose Ordered Sig/Jasmin Route Start Time Stop Time Status Last Admin Dose Admin Famotidine 20 mg ONCE ONCE IVP 08/16/19 00:30 08/16/19 00:31 DC 08/16/19 00:26 20 MG Fentanyl Citrate 50 mcg ONCE ONCE IVP 08/16/19 00:30 08/16/19 00:31 DC 08/16/19 00:26 50 MCG Ondansetron HCl 8 mg ONCE ONCE IVP 08/16/19 00:30 08/16/19 00:31 DC 08/16/19 00:26 8 MG Vital Signs/I&O 08/16/19 00:11 Temp 38.0 Pulse 92 Resp 24 B/P (MAP) 136/80 (98) Pulse Ox 100 O2 Delivery Room Air Blood Pressure Mean: 98 Progress Progress Note : Progress Note Patient was initially treated with fentanyl, Pepcid, and Zofran. This provided some relief but not sufficient relief. Labs revealed a leukocytosis. Patient had a thorough workup on the prior visit. Workup was extended during this ER visit with acute abdominal series which failed to reveal any obstruction or free air. He initially had a temperature of 38.0. This was borderline for fever. However, a repeat temperature at 01:57 was only 36.6. He had significant leukocytosis but CRP was very low. Patient does not appear to be septic. He is being admitted for symptom control. He required a second dose of opioids with a morphine injection to control his pain. He was still nauseated after Zofran. I have discussed the case with Dr. CHRISTIAN and Dr. Nolen. We will keep him nothing by mouth and do a stat gallbladder ultrasound in the morning. Dr. Nolen will evaluate his appropriateness for other studies. Diagnostic Imaging Diagonstic Imaging: Xray Plain Films/CT/US/NM/MRI: chest, abdomen Comments Acute abdominal series viewed by me. Report not yet available. No acute abnormalities appreciated. Departure Communication (Admissions) Time/Spoke to Admitting Phy: 01:45 Dr. Christian Time/Spoke to Consulting Phy: 01:54 Dr. Nolen Impression Primary Impression: Upper abdominal pain Additional Impressions: Nausea and vomiting Qualified Codes: R11.2 - Nausea with vomiting, unspecified Leukocytosis Qualified Codes: D72.829 - Elevated white blood cell count, unspecified Disposition: ADMITTED INPATIENT Condition: Stable Admissions Decision to Admit Reason: Admit from ER (General) Decision to Admit/Date: Aug 16, 2019 Time/Decision to Admit Time: 01:40 Departure-Patient Inst. Referrals: NO,LOCAL PHYSICIAN (PCP/Family) Primary Care Physician JUANITO PACE MD Aug 16, 2019 01:42
--- NOTE | 2019-08-16 02:33 | NUR ---
ATTEMPTED TO CALL REPORT TO ELLA KERN, SPOKE TO DOMINGA KERN TO PASS MESSAGE TO CALL THE ER FOR REPORT
--- NOTE | 2019-08-16 03:00 | NUR ---
"FELIPE LÓPEZ admitted to room 420-1, with an admitting diagnosis of EPIGASTRIC PAIN| NAUSEA & VOMITING|LEUKOCYTOSIS, on 08/16/19 from ED via WC, accompanied by STAFF.FELIPE LÓPEZ introduced to surroundings, call light, bed controls, phone, TV, temperature control, lights, meal times, smoking policy, visitor policy, side rail policy, bathrooms and showers. Patient Rights given to patient in the handbook.FELIPE LÓPEZ verbalizes understanding that [facility] is not responsible for the loss or damage to any personal effects or valuables that are kept in the patients posession during their hospitalization. The following Patient Care Plans were discussed with the : Discharge Planning, EPIGASTRIC PAIN| NAUSEA & VOMITING|LEUKOCYTOSIS. FELIPE LÓPEZ verbalizes understanding of Interdisciplinary Patient Education. Patient and/or family were informed about the Rapid Response Team and its purpose."
[2019-08-16] MEDS ORDERED: PROMETHAZINE INJ 25 MG/ML (PHENERGAN) AMP IV PRN (04:30)
[2019-08-16] MEDS ORDERED: ONDANSETRON 4 MG/2 ML (SDV) Z0FRAN IV PRN (04:30)
[2019-08-16] MEDS ORDERED: morphine INJ 4 MG/ML 1 ML (VIAL/SYRINGE) IV PRN (04:30)
[2019-08-16] MEDS: D5 1/2 NS W/KCL 20 MEQ/L 1,000 ML IV SCH ×2 (06:23→14:14)
--- NOTE | 2019-08-16 07:45 | Diagnostic Imaging Report ---
Indication: Abdominal pain, nausea vomiting Abdomen series PA chest, supine and upright abdominal images are obtained Lungs are clear. There is no intraperitoneal free air. Bowel gas pattern is normal. There are no pathologic masses or calcifications. IMPRESSION: No acute abnormalities in the abdomen Dictated by: Dictated on workstation # [id number]
[2019-08-16] MEDS ORDERED: OMEP40CA27 PO (08:13)
[2019-08-16] MEDS ORDERED: SUCR1TAB PO (08:13)
[2019-08-16] MEDS ORDERED: ONDA4TAB11 PO (08:13)
--- NOTE | 2019-08-16 08:15 | NUR ---
SPOKE WITH THE PT (HE HAD HIS BOTTLES) WELL GOING THRU THE EXT MED HISTORY TO COMPLETE THE MED REC. OTC MED: SLEEP AID
[2019-08-16] MEDS ORDERED: DIPH50CA40 PO (08:18)
--- NOTE | 2019-08-16 08:34 | Diagnostic Imaging Report ---
PROCEDURE: US Gallbladder. TECHNIQUE: Multiple real-time grayscale images were obtained over the right upper quadrant in various projections. INDICATION: Epigastric pain Liver parenchyma is homogeneous with normal echotexture. Portal vein is patent with hepatopedal flow. Gallbladder is clear with no stones or wall thickening. Pancreas is obscured by bowel gas. Right kidney measures 10 cm in length and appears normal. There is no ascites. IMPRESSION: Negative gallbladder sonogram Dictated by: Dictated on workstation # [id number]
[2019-08-16] MEDS: FAMOTIDINE 20MG/2ML IV (PEPCID) IVP SCH ×2 (09:44→21:43)
[2019-08-16] MEDS: PANTOPRAZOLE 40 MG (PROTONIX) VIAL IV SCH (09:44)
--- NOTE | 2019-08-16 09:47 | Consultation - Surgery ---
[facility] 08/16/19 0947: History of Present Illness History of Present Illness Patient Consulted On(altaf/time) 08/16/19 09:40 Date Seen by Provider: Aug 16, 2019 Time Seen by Provider: 08:59 Reason for Visit: Epigastric pain, N/V History of Present Illness This is a 54 y/o male w/ PMH of Erosive esophagitis, GERD, and hiatal hernia who presented to the ED with upper abd pain and N/V (clear emesis) which onset 4 days ago. states the pain is non-radiating and sharp in nature. Denies any F, chills, diarrhea, constipation, melena, hematochezia, hematemesis, SOB, CP, or palpitations. Denies any hx of pancreatitis or GB issues. Pt has about a 12pack of beer every week (2-3 beer per night) along w/ 3-4 beers every other Wednesday when he goes out with his sister. Pt takes Omeprazole at home which have been able to control his sx until the last few days. Does not take Carafate. Pt does not regularly f/u w a doctor and cannot remember the last time he had routine labs checked. Pt is pain free at the time of evaluation; states "the pain went away after the pain shot they gave me just now". last episode of vomiting was last night. Pt has been NPO since 7pm last night. Allergies and Home Medications Allergies Coded Allergies: codeine (Unverified Adverse Reaction, Mild, NAUSEA, 08/16/19) Home Medications Diphenhydramine HCl 50 Mg Capsule, 50 MG PO HS PRN for SLEEP, (Reported) Omeprazole 40 Mg Capsule.dr, 40 MG PO DAILY, (Reported) Ondansetron 4 Mg Tab.rapdis, 4 MG PO Q6H PRN for NAUSEA/VOMITING-1ST LINE, (Reported) Sucralfate 1 Gm Tablet, 1 GM PO QIDACHS, (Reported) Past Ezvebii-Vksxhm-Ivvzca Hx Patient Social History Alcohol Use: Regular Use Number of Drinks Today: AA Recreational Drug Use: No Smoking Status: Current Everyday Smoker Type Used: Cigarettes Recent Foreign Travel: No Contact w/Someone Who Travel: No Recent Infectious Disease Expo: No Recent Hopitalizations: No Seasonal Allergies Seasonal Allergies: No Surgeries History of Surgeries: Yes (RIGHT KNEE/LEG FX/ORIF; EGD) Surgeries: Orthopedic Respiratory History of Respiratory Disorde: No Cardiovascular History of Cardiac Disorders: Yes (CURRENTLY NOT TAKING MEDS FOR B/P, STATES DOESNT HAVE MONEY FOR IT NOW) Cardiac Disorders: Hypertension Neurological History of Neurological Disord: No Genitourinary History of Genitourinary Disor: No Gastrointestinal History of Gastrointestinal Di: Yes (gastritis, erosive esophagitis) Gastrointestinal Disorders: Gastroesophageal Reflux, Polyps, Hiatal Hernia Musculoskeletal History of Musculoskeletal Dis: Yes (RIGHT KNEE/ LEG FX/ ORIF) Endocrine History of Endocrine Disorders: No HEENT History of HEENT Disorders: No Cancer History of Cancer: No Psychosocial History of Psychiatric Problem: No Integumentary History of Skin or Integumenta: No Blood Transfusions History of Blood Disorders: No Review of Systems-General Constitutional: No chills, No fever Respiratory: No cough, No dyspnea on exertion Cardiovascular: No chest pain, No edema, No palpitations Gastrointestinal: abdominal pain; No diarrhea, No dysphagia, No hematemesis, No nausea, No vomiting Physical Exam-General Problems Physical Exam Vital Signs Vital Signs - First Documented 08/16/19 00:11 Temp 38.0 Pulse 92 Resp 24 B/P (MAP) 136/80 (98) Pulse Ox 100 O2 Delivery Room Air Capillary Refill : Less Than 3 Seconds General Appearance: WD/WN, no apparent distress HEENT: PERRL/EOMI Neck: non-tender, normal inspection Respiratory: chest non-tender, no respiratory distress, no accessory muscle use Cardiovascular: regular rate, rhythm, no JVD Gastrointestinal: non tender, soft, no pulsatile mass; No distended, No guarding, No rebound, No tenderness Back: normal inspection, no CVA tenderness Extremities: no pedal edema Neurologic/Psychiatric: alert, normal mood/affect, oriented x 3 Skin: normal color, warm/dry Lymphatic: no adenopathy Data Review Labs Laboratory Tests 08/16/19 00:15: White Blood Count 15.6H, Red Blood Count 4.24L, Hemoglobin 13.3, Hematocrit 39L, Mean Corpuscular Volume 92, Mean Corpuscular Hemoglobin 31, Mean Corpuscular Hemoglobin Concent 34, Red Cell Distribution Width 13.8, Platelet Count 419H, Mean Platelet Volume 10.5H, Neutrophils (%) (Auto) 72, Lymphocytes (%) (Auto) 16, Monocytes (%) (Auto) 10, Eosinophils (%) (Auto) 2, Basophils (%) (Auto) 1, Neutrophils # (Auto) 11.2H, Lymphocytes # (Auto) 2.6, Monocytes # (Auto) 1.6H, Eosinophils # (Auto) 0.3, Basophils # (Auto) 0.1, Neutrophils % (Manual) 73, Lymphocytes % (Manual) 16, Monocytes % (Manual) 9, Band Neutrophils 2, Blood Morphology Comment NORMAL, Sodium Level 140, Potassium Level 3.6, Chloride Level 105, Carbon Dioxide Level 21, Anion Gap 14, Blood Urea Nitrogen 16, Creatinine 1.00, Estimat Glomerular Filtration Rate > 60, BUN/Creatinine Ratio 16, Glucose Level 110H, Calcium Level 9.4, Corrected Calcium 9.2, Total Bilirubin 0.4, Aspartate Amino Transf (AST/SGOT) 19, Alanine Aminotransferase (ALT/SGPT) 20, Alkaline Phosphatase 62, Troponin I < 0.028, C-Reactive Protein High Sensitivity 0.10, Total Protein 7.2, Albumin 4.3, Lipase 20 08/16/19 01:10: Urine Color YELLOW, Urine Clarity CLEAR, Urine pH 8.0, Urine Specific [place] 1.020, Urine Protein NEGATIVE, Urine Glucose (UA) NEGATIVE, Urine Ketones TRACEH , Urine Nitrite NEGATIVE, Urine Bilirubin NEGATIVE, Urine Urobilinogen 0.2, Urine Leukocyte Esterase NEGATIVE, Urine RBC (Auto) NEGATIVE, Urine RBC NONE, Urine WBC NONE, Urine Squamous Epithelial Cells 0-2, Urine Crystals NONE, Urine Bacteria FEWH, Urine Casts NONE, Urine Mucus MODERATEH, Urine Culture Indicated NO Assessment/Plan Assessment/Plan Assessment/Plan Acute onset upper abdominal Pain Nausea and non-bilious, non-bloody vomiting Esophagitis and GERD Hiatal hernia NPO, advance to clear liquid diet as tolerated PPI and Carafate IVF replacement Pain control U/S negative for stones and acute inflammation Negative lipase Will do EGD today Clinical Quality Measures DVT/VTE Risk/Contraindication: Risk Factor Score Per Nursin RFS Level Per Nursing on Admit: 1=Low/No VTE PPX EMMANUEL NOLEN DO 08/16/191951: History of Present Illness History of Present Illness History of Present Illness 54 year old male with epigastric abdominal pain that is sharp and nonradiating. has had for about 4 days. Pain moderate to severe. He has been having nausea and some episode of clear vomiting. Pain medication has helped his pain. Nothing seems to make worse. Last egd was Jul 2018 which he had erosive esophagitis. Had ct scan abd/pelvis 08/13/19 showing small hepatic cyst a small lung nodule a hiatal hernia, no other acute abnormality. Today had u/s of gallbladder which did not demonstrate stones or findings of acute cholecystitis. Allergies and Home Medications Allergies Coded Allergies: codeine (Unverified Adverse Reaction, Mild, NAUSEA, 08/16/19) Home Medications Diphenhydramine HCl 50 Mg Capsule, 50 MG PO HS PRN for SLEEP, (Reported) Omeprazole 40 Mg Capsule.dr, 40 MG PO DAILY, (Reported) Ondansetron 4 Mg Tab.rapdis, 4 MG PO Q6H PRN for NAUSEA/VOMITING-1ST LINE, (Reported) Sucralfate 1 Gm Tablet, 1 GM PO QIDACHS, (Reported) Patient Home Medication List Home Medication List Reviewed: Yes Past Einxptq-Kzsufb-Zmjgxs Hx Reviewed Nursing Assessment Reviewed/Agree w Nursing PMH: Yes Family Medical History Significant Family History: No Pertinent Family Hx Review of Systems-General Constitutional: No chills, No fever Respiratory: No cough, No dyspnea on exertion Cardiovascular: No chest pain, No edema, No palpitations Gastrointestinal: abdominal pain; No diarrhea, No dysphagia, No hematemesis; nausea, vomiting Genitourinary: no symptoms reported; No decreased output, No dysuria Musculoskeletal: no symptoms reported; No back pain, No joint pain Psychiatric/Neurological: Denies Anxiety, Denies Depressed Physical Exam-General Problems Physical Exam General Appearance: WD/WN, no apparent distress HEENT: PERRL/EOMI, normal ENT inspection, pharynx normal Neck: non-tender, supple, normal inspection Respiratory: chest non-tender, no respiratory distress, no accessory muscle use Cardiovascular: regular rate, rhythm Gastrointestinal: soft, no pulsatile mass, tenderness (epigastric region) Rectal: deferred Back: normal inspection, no CVA tenderness Extremities: normal range of motion, non-tender, no pedal edema 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 U/s galllbadder negative and recent ct no acute issues has history of erosive esophagitis continue protonix, add carafate EGD today and then slowly advance diet as tolerates Supervisory-Addendum Brief Verification & Attestation Participated in pt care: history, MDM, physical Personally performed: exam, history, MDM, supervision of care Care discussed with: Medical Student Procedures: n/a Results interpretation: Verified all documentation Verification and Attestation of Medical Student E/M Service A medical student performed and documented this service in my presence. I reviewed and verified all information documented by the medical student and made modifications to such information, when appropriate. I personally performed the physical exam and medical decision making. Emmanuel Nolen, Aug 16, 2019,11:56 [facility] Aug 16, 2019 09:47 EMMANUEL NOLEN DO Aug 16, 2019 19:52
[2019-08-16] MEDS: SUCRALFATE 1 GM (CARAFATE) TAB PO SCH ×3 (11:00→21:43)
--- NOTE | 2019-08-16 11:52 | History & Physical-Hospitalist ---
MARLEN PAPPAS,MED STUDENT 08/16/19 1152: History of Present Illness HPI/Chief Complaint Patient is a 54 y/o male who presents with abdominal pain. Pain began last night and is described as a sharp pain located in the epigastric region. It is associated with nausea and 10-12 episodes of emesis. It is made better when he is in a doubled-over position, and sometimes is better with laying flat. Nothing seems to make it worse. He rates the pain as a 10/10. He was seen in the ED on 08/13 for similar symptoms and had a negative workup which included CT abd/pelvis and rule out of cardiac cause. He has a history of hiatal hernia, erosive esophagitis, gastritis, and GERD and he had an EGD done by Dr. Nolen one year ago. Date Seen 08/16/19 Time Seen by a Provider: 09:05 Attending Physician Adilene Christian MD PCP No,Local Physician Referring Physician Date of Admission Aug 16, 2019 at 02:00 Home Medications & Allergies Home Medications Reviewed patient Home Medication Reconciliation performed by pharmacy medication reconciliations ultrasound technician and/or nursing. Patients Allergies have been reviewed. Allergies Allergies Coded Allergies codeine (Unverified Adverse Reaction, Mild, NAUSEA, 08/16/19) Past Hpriizu-Ebeftc-Zcesge Hx Past Med/Social Hx: Reviewed Nursing Past Med/Soc Hx Patient Social History Alcohol Use: Regular Use Number of Drinks Today: AA Alcohol Beverage of Choice: Beer Recreational Drug Use: No Smoking Status: Current Everyday Smoker (1 ppd) Type Used: Cigarettes Recent Foreign Travel: No Contact w/other who traveled: No Recent Hopitalizations: No Recent Infectious Disease Expo: No Seasonal Allergies Seasonal Allergies: No Past Medical History Surgeries: Orthopedic (R knee) Cardiac: Hypertension Gastrointestinal: Gastroesophageal Reflux, Polyps, Hiatal Hernia History of Blood Disorders: No Family History Cancer (lung (mom)) Review of Systems Constitutional: No chills, No fever, No weight loss EENTM: No hearing loss, No vision loss Respiratory: cough; No short of breath Cardiovascular: No chest pain, No palpitations Gastrointestinal: abdominal pain; No constipation, No diarrhea Genitourinary: No dysuria, No frequency Musculoskeletal: No joint pain, No joint swelling Skin: No lesions, No rash Psychiatric/Neurological: Denies Headache, Denies Numbness, Denies Paresthesia Physical Exam Physical Exam Vital Signs Vital Signs - First Documented 08/16/19 00:11 Temp 38.0 Pulse 92 Resp 24 B/P (MAP) 136/80 (98) Pulse Ox 100 O2 Delivery Room Air Capillary Refill : Less Than 3 Seconds Height, Weight, BMI Height: 5'7.00" Weight: 160lbs. 0.0oz. [id number]; 26.19 BMI Method:Stated General Appearance: No Apparent Distress, WD/WN HEENT: Pharynx Normal, Moist Mucous Membranes Neck: Non Tender, Supple Respiratory: Chest Non Tender, Lungs Clear, Normal Breath Sounds, No Accessory Muscle Use, No Respiratory Distress Cardiovascular: Regular Rate, Rhythm, No Edema, No Murmur Gastrointestinal: Soft; No Distended, No Guarding; Tenderness (right upper quadrant and epigastric region), Other (Negative raphale's sign) Extremity: No Calf Tenderness, No Pedal Edema Neurologic/Psychiatric: Alert, Normal Mood/Affect Skin: Normal Color, Warm/Dry Lymphatic: No Adenopathy Results Results/Procedures Labs Laboratory Tests 08/16/19 00:15 Patient resulted labs reviewed. Imaging Acute abdominal series IMPRESSION: No acute abnormalities in the abdomen US Gallbladder IMPRESSION: Negative gallbladder sonogram Assessment/Plan Admission Diagnosis Abdominal pain with leukocytosis Admission Status: Inpatient Order (span 2 midnights) Assessment and Plan Abdominal pain with leukocytosis - Abdominal x-ray and gallbladder ultrasound negative - CT abd/pelvis from 3 days ago also negative - Lipase is wnl - NPO - Surgery consulted, Dr. Nolen with proceed with repeat EGD today - Morphine as needed for pain - Phenergan for nausea - IV pepcid and protonix - Continue carafate Clinical Quality Measures DVT/VTE Risk/Contraindication: Risk Factor Score Per Nursin RFS Level Per Nursing on Admit: 1=Low/No VTE PPX CARRILLO AJ MD 08/16/19 2015: Past Cokfuiy-Hyngem-Lhbvdy Hx Past Med/Social Hx: Reviewed Nursing Past Med/Soc Hx Family History Reviewed Nursing Family Hx Assessment/Plan Admission Diagnosis Admission Status: Observation Assessment and Plan Pt presented with abdominal pain after being seen two days ago for similar symptoms and started carfate along with his PPI. He has a history of erosive esophagitis and gastritis on his EGD 1 year ago. I discussed the case with Dr Nolen and plan is for repeat EGD today for follow up and evaluation given worsening symptoms. Will continue on carafate and PPI. Patient reports difficulty affording medications so will discuss with pharmacy regarding more affordable meds and advised follow up with [facility] for more access to care. Diagnosis/Problems Diagnosis/Problems (1) Erosive esophagitis Status: Acute (2) Gastritis Status: Acute Qualifiers: Gastritis type: other gastritis Chronicity: chronic Gastritis bleeding: without bleeding Qualified Codes: K29.50 - Unspecified chronic gastritis without bleeding (3) Leukocytosis Status: Acute Qualifiers: Leukocytosis type: unspecified Qualified Codes: D72.829 - Elevated white blood cell count, unspecified (4) Nausea and vomiting Status: Acute Qualifiers: Vomiting type: unspecified Vomiting Intractability: non-intractable Qual ified Codes: R11.2 - Nausea with vomiting, unspecified (5) Upper abdominal pain Status: Acute (6) Tobacco abuse Status: Chronic Supervisory-Addendum Brief Verification & Attestation Participated in pt care: history, MDM, physical Personally performed: exam, history, MDM, supervision of care Care discussed with: Medical Student Procedures: n/a Results interpretation: Verified all documentation Verification and Attestation of Medical Student E/M Service A medical student performed and documented this service in my presence. I reviewed and verified all information documented by the medical student and made modifications to such information, when appropriate. I personally performed the physical exam and medical decision making. Carrillo Aj, Aug 16, 2019,20:08 MARLEN PAPPAS,MED STUDENT Aug 16, 2019 11:52 CARRILLO AJ MD Aug 16, 2019 20:15
[2019-08-16] MEDS ORDERED: LACTATED RINGERS 1,000 ML IV ONE (12:00)
--- NOTE | 2019-08-16 12:00 | NUR ---
TO SCOPE ROOM PER W/C.
[2019-08-16] MEDS ORDERED: MIDAZOLAM 2 MG/2 ML (VERSED) VIAL ONE (12:07)
[2019-08-16] MEDS ORDERED: PROPOFOL INJECTION 50 ML IV ONE (12:08)
--- NOTE | 2019-08-16 12:50 | NUR ---
RETURNED FROM SCOPE ROOM PER W/C. ALERT AND COOPERATIVE. SKIN W/D. RESP. REGULAR. V/S-110/60 P-76 RESP. 18 O2 SAT=95 % ON R/A. DENIES PAIN OR NAUSEA AT THIS TIME.
--- NOTE | 2019-08-16 14:14 | Anesthesia-General Post-Op ---
MAC Patient Condition Mental Status/LOC: Same as Preop Cardiovascular: Satisfactory Nausea/Vomiting: Absent Respiratory: Satisfactory Pain: Controlled Complications: Absent Post Op Complications Complications None Follow Up Care/Instructions Patient Instructions None needed. Anesthesiology Discharge Order Discharge Order Patient is doing well, no complaints, stable vital signs, no apparent adverse anesthesia problems. No complications reported per nursing. LOREN SHAFER CRNA Aug 16, 2019 14:14
[2019-08-16] MEDS ORDERED: NICOTINE 21 MG (NICODERM) PATCH TD NR (15:29)
[2019-08-16] MEDS: CATHETER FLUSH 10 ML SYR IV SCH (21:43)
[2019-08-17 01:51] VITALS: BP 99/58
--- NOTE | 2019-08-17 04:27 | OPERATIVE REPORT ---
DATE OF SERVICE: 08/16/2019 PREOPERATIVE DIAGNOSES: Epigastric abdominal pain and gastroesophageal reflux disease. POSTOPERATIVE DIAGNOSES: Duodenitis, hiatal hernia, and esophagitis. PROCEDURE: EGD with biopsy. SURGEON: Bernarda Nolen DO. ANESTHESIA: Per REHAB TECH. ESTIMATED BLOOD LOSS: None. COMPLICATIONS: None. INDICATIONS: The patient is a 54-year-old male with epigastric abdominal pain. He has history of erosive esophagitis. His GERD symptoms have worsened. He understands risks and benefits of procedure and wished to proceed with procedure. Consent was signed in the chart. DESCRIPTION OF PROCEDURE: The patient was taken to the endoscopy suite, placed in left lateral recumbent position. Timeout was performed. Scope was inserted into the mouth, down the esophagus, stomach and into the duodenum without difficulty. Second portion of the duodenum had normal appearance. The first portion had some erythematous changes consistent with duodenitis. Biopsy of the duodenum was obtained. Scope was then slowly retracted back into the stomach where it was further insufflated. Slight erythematous changes. There were no polyps, masses, or ulcerations. Biopsy of the antrum was obtained. Scope was retroflexed noting hiatal hernia, no other pathology noted. Scope was returned to its normal position, slowly withdrawn to the distal esophagus, which had changes consistent with esophagitis and Bojorquez's. Biopsies were obtained and the scope was then slowly retracted back to completely remove noting no other pathology. The patient tolerated procedure well without any complications. He was taken to recovery room in stable condition. RECOMMENDATIONS: We will add Carafate 1 gram four times a day to his regimen and see if any improvement. We will continue on Protonix. We will await biopsy results for further recommendations. Job ID: [id number] DocumentID: [id number] Dictated Date: 08/16/2019 19:35:26 [employer] Date: 08/17/2019 04:26:30 Dictated By: BERNARDA NOLEN DO
[2019-08-17 04:35] VITALS: BP 122/70
[2019-08-17] MEDS: SUCRALFATE 1 GM (CARAFATE) TAB PO SCH (05:38)
[2019-08-17] MEDS: CATHETER FLUSH 10 ML SYR IV SCH (05:39)
[2019-08-17 07:50] VITALS: BP 124/72
--- NOTE | 2019-08-17 08:06 | Progress Note - Surgery ---
JANNETTE OSEGUERA [facility] 08/17/19 0806: Subjective Date Seen by a Provider: Aug 17, 2019 Time Seen by a Provider: 07:44 Subjective/Events-last exam Pt was sleeping comfortably before I walked in. He has no complaints at all today including N/V, or abd pain. he has been tolerating his clear liquid diet well. ready to go home Review of Systems General: No Chills, No Fatigue Pulmonary: No Dyspnea, No Cough Cardiovascular: No: Chest Pain, Palpitations Gastrointestinal: No: Nausea, Vomiting, Abdominal Pain, Diarrhea, Constipation Objective Exam Vital Signs Date Time Temp Pulse Resp B/P (MAP) Pulse Ox O2 Delivery O2 Flow Rate FiO2 08/17/19 07:50 37.1 72 20 124/72 (89) 97 Room Air 08/17/19 04:35 36.9 79 18 122/70 (87) 97 Room Air 08/17/19 01:51 36.9 69 18 99/58 (72) 96 Room Air 08/16/19 20:21 37.2 73 16 118/79 (92) 97 Room Air 08/16/19 16:06 37.0 62 16 110/69 (83) 97 Room Air 08/16/19 12:35 69 18 100 Room Air 08/16/19 12:33 63 18 100 OxyMask 6 08/16/19 12:30 61 18 98 OxyMask 9 08/16/19 12:27 65 18 99 OxyMask 9 08/16/19 12:00 37.0 65 20 122/76 (91) 99 Room Air I & O 08/17/19 07:00 Intake Total 44649 ml Balance 59571 ml Capillary Refill : Less Than 3 Seconds General Appearance: No Apparent Distress, WD/WN HEENT: Pharynx Normal, Moist Mucous Membranes Neck: Non Tender, Supple Respiratory: Chest Non Tender, Lungs Clear, Normal Breath Sounds, No Accessory Muscle Use, No Respiratory Distress Cardiovascular: Regular Rate, Rhythm, No Edema, No Murmur Gastrointestinal: non tender, soft, no pulsatile mass Extremity: No Calf Tenderness, No Pedal Edema Neurologic/Psychiatric: Alert, Normal Mood/Affect Skin: Normal Color, Warm/Dry Lymphatic: No Adenopathy Assessment/Plan Assessment/Plan Assessment/Plan Epigastric abdominal Pain-resolved Nausea and non-bilious, non-bloody vomiting-resolved Esophagitis and GERD Hiatal hernia EGD yesterday showed Duodenitis and confirmed hiatal hernia, and esophagitis; pathology report from [facility] is pending Pt reports great relief of sx with Carafate in addition to protonix continue Carafate and protonix advance diet to solids, instructed pt to chew well, eat slowly and in small amounts If tolerates diet w/ no further issue, clear from surgery stand point for d/c w/ plan for outpatient f/u w/ Dr Fair Clinical Quality Measures DVT/VTE Risk/Contraindication: Risk Factor Score Per Nursin RFS Level Per Nursing on Admit: 1=Low/No VTE PPX BERNARDA FAIR DO 08/17/19 1501: Subjective Subjective/Events-last exam Patient is feeling well today. Not having any nausea or emesis. Tolerating diet. Not having any pain now. Denies n/v fever sweats chills shortness of breath or chest pain. Objective Exam General Appearance: No Apparent Distress HEENT: Moist Mucous Membranes Neck: Non Tender, Supple Respiratory: Chest Non Tender, No Accessory Muscle Use, No Respiratory Distress Cardiovascular: Regular Rate, Rhythm Gastrointestinal: non tender, soft, no pulsatile mass Extremity: No Calf Tenderness, No Pedal Edema Neurologic/Psychiatric: Alert, Oriented x3 Skin: Normal Color, Warm/Dry Lymphatic: No Adenopathy Assessment/Plan Assessment/Plan Assessment/Plan Epigastric abdominal Pain-resolved Nausea and non-bilious, non-bloody vomiting-resolved Esophagitis, duodenitis and GERD Hiatal hernia patient to continue protonix/carafate await biopsy results tolerating diet and no pain ok to ri home follow up Tamanna 2 weeks any issues before that be seen at that time. Supervisory-Addendum Brief Verification & Attestation Participated in pt care: history, MDM, physical Personally performed: exam, history, MDM, supervision of care Care discussed with: Medical Student Procedures: n/a Results interpretation: Verified all documentation Verification and Attestation of Medical Student E/M Service A medical student performed and documented this service in my presence. I reviewed and verified all information documented by the medical student and made modifications to such information, when appropriate. I personally performed the physical exam and medical decision making. Bernarda Fair, Aug 17, 2019,15:01 [facility] 08:06 BERNARDA FAIR DO Aug 17, 2019 15:01
[2019-08-17] MEDS: PANTOPRAZOLE 40 MG (PROTONIX) VIAL IV SCH (08:21)
[2019-08-17] MEDS: FAMOTIDINE 20MG/2ML IV (PEPCID) IVP SCH (08:21)
[2019-08-17] MEDS ORDERED: SENNA W/DOCUSATE (SENOKOT S) TABLET PO PRN (08:30)
--- NOTE | 2019-08-17 08:44 | Discharge Inst-Simple/Standard ---
Discharge Inst-Standard Patient Instructions/Follow Up Plan of Care/Instructions/FU: Please continue to take your medications as written. Please establish care with a primary care doctor to follow up this hospital stay. Activity as Tolerated: Yes Discharge Diet: No Restrictions Return to The Hospital For: Worsening pain, nausea, vomiting, if you feel you are getting worse. CARRILLO WARE MD Aug 17, 2019 08:44
--- NOTE | 2019-08-17 08:46 | Discharge Summary ---
Diagnosis/Chief Complaint Date of Admission Aug 16, 2019 at 02:00 Date of Discharge Discharge Date: Aug 17, 2019 Admission Diagnosis Primary Care No,Local Physician Discharge Diagnosis (1) Erosive esophagitis Status: Acute (2) Gastritis Status: Acute (3) Leukocytosis Status: Acute (4) Nausea and vomiting Status: Acute (5) Upper abdominal pain Status: Acute (6) Tobacco abuse Status: Chronic Discharge Summary Discharge Physical Exam Allergies: Coded Allergies: codeine (Unverified Adverse Reaction, Mild, NAUSEA, 08/16/19) Vitals & I&Os Vital Signs Date Time Temp Pulse Resp B/P (MAP) Pulse Ox O2 Delivery O2 Flow Rate FiO2 08/17/19 07:50 37.1 72 20 124/72 (89) 97 Room Air 08/16/19 12:33 6 Hospital Course Labs (last 24 hrs) Patient resulted labs reviewed. Discharge Home Medications: Active Scripts Active Reported Sleep Aid (Diphenhydramine HCl) 50 Mg Capsule 50 Mg PO HS PRN Ondansetron Odt (Ondansetron) 4 Mg Tab.rapdis 4 Mg PO Q6H PRN Omeprazole 40 Mg Capsule.dr 40 Mg PO DAILY Sucralfate 1 Gm Tablet 1 Gm PO QIDACHS Instructions to patient/family Please see electronic discharge instructions given to patient. Clinical Quality Measures DVT/VTE Risk/Contraindication: Risk Factor Score Per Nursin RFS Level Per Nursing on Admit: 1=Low/No VTE PPX Problem Qualifiers (1) Gastritis: Gastritis type: other gastritis Chronicity: chronic Gastritis bleeding: without bleeding Qualified Codes: K29.50 - Unspecified chronic gastritis without bleeding (2) Leukocytosis: Leukocytosis type: unspecified Qualified Codes: D72.829 - Elevated white blood cell count, unspecified (3) Nausea and vomiting: Vomiting type: unspecified Vomiting Intractability: non-intractable Qualified Codes: R11.2 - Nausea with vomiting, unspecified CARRILLO WARE MD Aug 17, 2019 08:46
[2019-08-17] MEDS ORDERED: NICOTINE 21 MG (NICODERM) PATCH TD SCH (09:00)
[2019-08-17] MEDS ORDERED: NICOTINE PATCH REMOVAL TP SCH ×2 (09:00→15:28)
[2019-08-17 11:10] VITALS: BP 124/72
--- NOTE | 2019-08-17 11:19 | NUR ---
Spoke with pt reference GERD education. Spoke with Pt about when to eat, portion control, When to not eat and what foods to avoid. Spoke with pt about position during meals and at night. Gave pt handout with information and pt verbalized no questions or concerns at this time.
--- NOTE | 2019-08-22 08:21 | Anesthesia-General Post-Op ---
MAC Patient Condition Mental Status/LOC: Same as Preop Cardiovascular: Satisfactory Nausea/Vomiting: Absent Respiratory: Satisfactory Pain: Controlled Complications: Absent Post Op Complications Complications None Follow Up Care/Instructions Patient Instructions postop patient seen on 08-16-19 at 1300 by angella. assessment above. Anesthesiology Discharge Order Discharge Order Patient is doing well, no complaints, stable vital signs, no apparent adverse anesthesia problems. No complications reported per nursing. LOREN SHAFER CRNA Aug 22, 2019 08:21
--- OUTSIDE RECORDS SUMMARY | 2019-08-22 15:56 | XMS REPORT | Continuity of Care Document ---
Author Organization Unknown Address Unknown Phone Unavailable Allergies Active Description Code Type Severity Reaction Onset Reported/Identified Relationship to Patient Clinical Status Yes codeine [id number] Drug Allergy Mild NAUSEA 08/16/2019 Medications There is no data. Problems Date Dx Coded Attending Type Code Diagnosis Diagnosed By 07/19/2018 BERNARDA FAIR DO Ot Z01.818 ENCOUNTER FOR OTHER PREPROCEDURAL EXAMIN 07/26/2018 BERNARDA FAIR DO Ot I10 ESSENTIAL (PRIMARY) HYPERTENSION 07/26/2018 BERNARDA FAIR DO Ot K20. 8 OTHER ESOPHAGITIS 07/26/2018 BERNARDA FAIR DO Ot K29. 50 UNSPECIFIED CHRONIC GASTRITIS WITHOUT BL 07/26/2018 BERNARDA FAIR DO Ot K44. 9 DIAPHRAGMATIC HERNIA WITHOUT OBSTRUCTION 07/26/2018 BERNARDA FAIR DO Ot K62. 1 RECTAL POLYP 07/26/2018 BERNARDA FAIR DO Ot K63. 5 POLYP OF COLON 07/26/2018 BERNARDA FAIR DO Ot Z12. 11 ENCOUNTER FOR SCREENING FOR MALIGNANT NE 07/26/2018 BERNARDA FAIR DO Ot Z79.899 OTHER PHYSICIAN INTERNIST (CURRENT) DRUG THERAPY 07/26/2018 BERNARDA FAIR DO Ot Z87.891 PERSONAL HISTORY OF NICOTINE DEPENDENCE 07/29/2018 BERNARDA FAIR DO Ot I10 ESSENTIAL (PRIMARY) HYPERTENSION 07/29/2018 BERNARDA FAIR DO Ot K20. 8 OTHER ESOPHAGITIS 07/29/2018 BERNARDA FAIR DO Ot K29. 50 UNSPECIFIED CHRONIC GASTRITIS WITHOUT BL 07/29/2018 BERNARDA FAIR DO Ot K44. 9 DIAPHRAGMATIC HERNIA WITHOUT OBSTRUCTION 07/29/2018 BERNARDA FAIR DO Ot K62. 1 RECTAL POLYP 07/29/2018 BERNARDA FAIR DO Ot K63. 5 POLYP OF COLON 07/29/2018 BERNARDA FAIR DO Ot Z12. 11 ENCOUNTER FOR SCREENING FOR MALIGNANT NE 07/29/2018 BENRARDA FAIR DO Ot Z79.899 OTHER PHYSICIAN INTERNIST (CURRENT) DRUG THERAPY 07/29/2018 FAIR BERNARDA João Ot Z87.891 PERSONAL HISTORY OF NICOTINE DEPENDENCE 02/25/2019 RODO CLEVELAND DO Ot F17.210 NICOTINE DEPENDENCE, CIGARETTES, UNCOMPL 02/25/2019 CRISTOFER DO RODO K Ot I10 ESSENTIAL (PRIMARY) HYPERTENSION 02/25/2019 CRISTOFER DARON BUTCHERA K Ot K21.9 GASTRO-ESOPHAGEAL REFLUX DISEASE WITHOUT 02/25/2019 CRISTOFER DO, RODO K Ot N13.2 HYDRONEPHROSIS WITH RENAL AND URETERAL C 02/25/2019 CRISTOFER RODO K Ot N28.9 DISORDER OF KIDNEY AND URETER, UNSPECIFI 02/25/2019 CRISTOFER RODO K Ot R11.2 NAUSEA WITH VOMITING, UNSPECIFIED 02/25/2019 CRISTOFER RODO K Ot R91.1 SOLITARY PULMONARY NODULE 02/25/2019 CRISTOFER RODO Frank Ot Z88.5 ALLERGY STATUS TO NARCOTIC AGENT STATUS 02/25/2019 CRISTOFER BUTCHER RODO K Ot Z91.120 PT INTENTL UNDRDOSE OF MEDS REGIMEN DUE 08/17/2019 SOY EUCEDA MD Ot D72.829 ELEVATED WHITE BLOOD CELL COUNT, UNSPECI 08/17/2019 SOY EUCEDA MD Ot F17.210 NICOTINE DEPENDENCE, CIGARETTES, UNCOMPL 08/17/2019 SOY EUCEDA MD Ot I10 ESSENTIAL (PRIMARY) HYPERTENSION 08/17/2019 SOY EUCEDA MD Ot K21.0 GASTRO-ESOPHAGEAL REFLUX DISEASE WITH ES 08/17/2019 SOY EUCEDA MD, Ot K22.10 ULCER OF ESOPHAGUS WITHOUT BLEEDING 08/17/2019 SOY EUCEDA MD Ot K29.70 GASTRITIS, UNSPECIFIED, WITHOUT BLEEDING 08/17/2019 SOY EUCEDA MD, Ot K31.89 OTHER DISEASES OF STOMACH AND DUODENUM 08/17/2019 SOY EUCEDA MD, Ot K44.9 DIAPHRAGMATIC HERNIA WITHOUT OBSTRUCTION 08/17/2019 SOY EUCEDA MD, Ot Z79.899 OTHER PHYSICIAN INTERNIST (CURRENT) DRUG THERAPY 08/17/2019 SOY EUCEDA MD, Ot Z88.5 ALLERGY STATUS TO NARCOTIC AGENT STATUS Procedures There is no data. Results Test Result Range Complete blood count (CBC) with automate d white blood cell (WBC) differential - 02/25/19 12:40 Blood leukocytes automated count (number/volume) 9.7 10*3/uL 4.3-11.0 Blood erythrocytes automated count (number/volume) 4.43 10*6/uL 4.35-5.85 Venous blood hemoglobin measurement (mass/volume) 14.0 g/dL 13.3-17.7 Blood hematocrit (volume fraction) 40 % 40-54 Automated erythrocyte mean corpuscular volume 91 [ foz_us] 80-99 Automated erythrocyte mean corpuscular h emoglobin (mass per erythrocyte) 32 pg 25-34 Automated erythrocyte mean corpuscular h emoglobin concentration measurement (mass/volume) 35 g/dL 32-36 Automated erythrocyte distribution width ratio 13. 9 % 10.0- 14.5 Automated blood platelet count (count/volume) 422 10*3/uL 130-400 Automated blood platelet mean volume measurement 10.1 [foz_us] 7.4-10.4 Automated blood neutrophils/100 leukocytes 59 % 42-75 Automated blood lymphocytes/100 leukocytes 24 % 12-44 Blood monocytes/100 leukocytes 13 % 0-12 Automated blood eosinophils/100 leukocytes 3 % 0-10 Automated blood basophils/100 leukocytes 1 % 0-10 Blood neutrophils automated count (number/volume) 5.8 10*3 1.8-7.8 Blood lymphocytes automated count (number/volume) 2.4 10*3 1.0-4.0 Blood monocytes automated count (number/volume) 1. 2 10*3 0.0-1.0 Automated eosinophil count 0.3 10*3/uL 0 .0-0.3 Automated blood basophil count (count/volume) 0.1 10*3/uL 0.0-0.1 Comprehensive metabolic panel - 02/25/19 12:40 Serum or plasma sodium measurement (moles/volume) 141 mmol/L 135-145 Serum or plasma potassium measurement (moles/volume) 4.1 mmol/L 3.6-5.0 Serum or plasma chloride measurement (moles/volume) 108 mmol/L 98-107 Carbon dioxide 20 mmol/L 21-32 Serum or plasma anion gap determination (moles/volume) 13 mmol/L 5-14 Serum or plasma urea nitrogen measurement (mass/volume ) 19 mg/dL 7-18 Serum or plasma creatinine measurement (mass/volume) 1.33 mg/dL 0.60-1.30 Serum or plasma urea nitrogen/creatinine mass ratio 14 NRG Serum or plasma creatinine measurement w ith calculation of estimated glomerular filtration rate 56 NRG Serum or plasma glucose measurement (mass/volume) 94 mg/dL 70-105 Serum or plasma calcium measurement (mass/volume) 9.5 mg/dL 8.5-10.1 Serum or plasma total bilirubin measurement (mass/volu me) 0.4 mg/dL 0.1-1.0 Serum or plasma alkaline phosphatase dileep surement (enzymatic activity/volume) 64 U/L 40-136 Serum or plasma aspartate aminotransfera se measurement (enzymatic activity/volume) 19 U/L 5-34 Serum or plasma alanine aminotransferase measurement (enzymatic activity/volume) 25 U/L 0-55 Serum or plasma protein measurement (mass/volume) 7.6 g/dL 6.4-8.2 Serum or plasma albumin measurement (mass/volume) 4.4 g/dL 3.2-4.5 CALCIUM CORRECTED 9.2 mg/dL 8.5-10.1 Serum or plasma amylase measurement (enz ymatic activity/volume) - 02/25/19 12:40 Serum or plasma amylase measurement (enzymatic activit y/volume) 78 U/L 25-125 Lipase - 02/25/19 12:40 Lipase 21 U/L 8-78 Complete urinalysis with reflex to cultu re - 02/25/19 12:50 Urine color determination YELLOW NRG Urine clarity determination CLEAR NR G Urine pH measurement by test strip 5 5-9 Specific gravity of urine by test strip 1.025 1.016-1.022 Urine protein assay by test strip, semi-quantitative 2+ NEGATIVE Urine glucose detection by automated test strip NE GATIVE NEGATIVE Erythrocytes detection in urine sediment by light micr oscopy 4+ NEGATIVE Urine ketones detection by automated test strip NE GATIVE NEGATIVE Urine nitrite detection by test strip NEGATIVE NEGATIVE Urine total bilirubin detection by test strip NEGA TIVE NEGATIVE Urine urobilinogen measurement by automated test strip (mass/volume) NORMAL NORMAL Urine leukocyte esterase detection by dipstick 1+ NEGATIVE Automated urine sediment erythrocyte cou nt by microscopy (number/high power field) [HPF] NRG Automated urine sediment leukocyte count by microscopy (number/high power field) RARE NRG Bacteria detection in urine sediment by light microsco py TRACE NRG Crystals detection in urine sediment by light microsco py NONE NRG Casts detection in urine sediment by light microscopy NONE NRG Mucus detection in urine sediment by light microscopy SMALL NRG Complete urinalysis with reflex to culture NO NRG Complete blood count (CBC) with automate d white blood cell (WBC) differential - 08/13/19 17:55 Blood leukocytes automated count (number/volume) 13.4 10*3/uL 4.3-11.0 Blood erythrocytes automated count (number/volume) 4.65 10*6/uL 4.35-5.85 Venous blood hemoglobin measurement (mass/volume) 14.3 g/dL 13.3-17.7 Blood hematocrit (volume fraction) 42 % 40-54 Automated erythrocyte mean corpuscular volume 91 [ foz_us] 80-99 Automated erythrocyte mean corpuscular h emoglobin (mass per erythrocyte) 31 pg 25-34 Automated erythrocyte mean corpuscular h emoglobin concentration measurement (mass/volume) 34 g/dL 32-36 Automated erythrocyte distribution width ratio 13. 9 % 10.0- 14.5 Automated blood platelet count (count/volume) 460 10*3/uL 130-400 Automated blood platelet mean volume measurement 10.2 [foz_us] 7.4-10.4 Automated blood neutrophils/100 leukocytes 84 % 42-75 Automated blood lymphocytes/100 leukocytes 10 % 12-44 Blood monocytes/100 leukocytes 5 % 0-12 Automated blood eosinophils/100 leukocytes 0 % 0-10 Automated blood basophils/100 leukocytes 0 % 0-10 Blood neutrophils automated count (number/volume) 11.3 10*3 1.8-7.8 Blood lymphocytes automated count (number/volume) 1.3 10*3 1.0-4.0 Blood monocytes automated count (number/volume) 0. 7 10*3 0.0-1.0 Automated eosinophil count 0.0 10*3/uL 0 .0-0.3 Automated blood basophil count (count/volume) 0.1 10*3/uL 0.0-0.1 PT panel in platelet poor plasma by coag ulation assay - 08/13/19 17:55 Prothrombin time (PT) in platelet poor plasma by coagu lation assay 13.2 s 12.2-14.7 INR in platelet poor plasma or blood by coagulation as say 1.0 0.8-1.4 Activated partial thromboplastin time (a PTT) in platelet poor plasma bycoagulation assay - 08/13/19 17:55 Activated partial thromboplastin time (a PTT) in platelet poor plasma bycoagulation assay 26 s 24-35 Comprehensive metabolic panel - 08/13/19 17:55 Serum or plasma sodium measurement (moles/volume) 139 mmol/L 135-145 Serum or plasma potassium measurement (moles/volume) 3.8 mmol/L 3.6-5.0 Serum or plasma chloride measurement (moles/volume) 103 mmol/L 98-107 Carbon dioxide 22 mmol/L 21-32 Serum or plasma anion gap determination (moles/volume) 14 mmol/L 5-14 Serum or plasma urea nitrogen measurement (mass/volume ) 14 mg/dL 7-18 Serum or plasma creatinine measurement (mass/volume) 1.00 mg/dL 0.60-1.30 Serum or plasma urea nitrogen/creatinine mass ratio 14 NRG Serum or plasma creatinine measurement w ith calculation of estimated glomerular filtration rate > NRG Serum or plasma glucose measurement (mass/volume) 111 mg/dL 70-105 Serum or plasma calcium measurement (mass/volume) 10.2 mg/dL 8.5-10.1 Serum or plasma total bilirubin measurement (mass/volu me) 0.6 mg/dL 0.1-1.0 Serum or plasma alkaline phosphatase dileep surement (enzymatic activity/volume) 82 U/L 40-136 Serum or plasma aspartate aminotransfera se measurement (enzymatic activity/volume) 19 U/L 5-34 Serum or plasma alanine aminotransferase measurement (enzymatic activity/volume) 20 U/L 0-55 Serum or plasma protein measurement (mass/volume) 8.2 g/dL 6.4-8.2 Serum or plasma albumin measurement (mass/volume) 4.8 g/dL 3.2-4.5 Magnesium - 08/13/19 17:55 Magnesium 2.0 mg/dL 1.6-2.4 Myoglobin, serum - 08/13/19 17:55 Myoglobin, serum 48.6 ng/mL 10.0-92.0 Serum or plasma troponin i.cardiac measu rement (mass/volume) - 08/13/19 17:55 Serum or plasma troponin i.cardiac measurement (mass/v olume) < ng/mL <0.028 Lipase - 08/13/19 17:55 Lipase 16 U/L 8-78 Serum or plasma troponin i.cardiac measu rement (mass/volume) - 08/13/19 20:30 Serum or plasma troponin i.cardiac measurement (mass/v olume) < ng/mL <0.028 Complete blood count (CBC) with automate d white blood cell (WBC) differential - 08/16/19 00:15 Blood leukocytes automated count (number/volume) 15.6 10*3/uL 4.3-11.0 Blood erythrocytes automated count (number/volume) 4.24 10*6/uL 4.35-5.85 Venous blood hemoglobin measurement (mass/volume) 13.3 g/dL 13.3-17.7 Blood hematocrit (volume fraction) 39 % 40-54 Automated erythrocyte mean corpuscular volume 92 [ foz_us] 80-99 Automated erythrocyte mean corpuscular h emoglobin (mass per erythrocyte) 31 pg 25-34 Automated erythrocyte mean corpuscular h emoglobin concentration measurement (mass/volume) 34 g/dL 32-36 Automated erythrocyte distribution width ratio 13. 8 % 10.0- 14.5 Automated blood platelet count (count/volume) 419 10*3/uL 130-400 Automated blood platelet mean volume measurement 10.5 [foz_us] 7.4-10.4 Automated blood neutrophils/100 leukocytes 72 % 42-75 Automated blood lymphocytes/100 leukocytes 16 % 12-44 Blood monocytes/100 leukocytes 10 % 0-12 Automated blood eosinophils/100 leukocytes 2 % 0-10 Automated blood basophils/100 leukocytes 1 % 0-10 Blood neutrophils automated count (number/volume) 11.2 10*3 1.8-7.8 Blood lymphocytes automated count (number/volume) 2.6 10*3 1.0-4.0 Blood monocytes automated count (number/volume) 1. 6 10*3 0.0-1.0 Automated eosinophil count 0.3 10*3/uL 0 .0-0.3 Automated blood basophil count (count/volume) 0.1 10*3/uL 0.0-0.1 Comprehensive metabolic panel - 08/16/19 00:15 Serum or plasma sodium measurement (moles/volume) 140 mmol/L 135-145 Serum or plasma potassium measurement (moles/volume) 3.6 mmol/L 3.6-5.0 Serum or plasma chloride measurement (moles/volume) 105 mmol/L 98-107 Carbon dioxide 21 mmol/L 21-32 Serum or plasma anion gap determination (moles/volume) 14 mmol/L 5-14 Serum or plasma urea nitrogen measurement (mass/volume ) 16 mg/dL 7-18 Serum or plasma creatinine measurement (mass/volume) 1.00 mg/dL 0.60-1.30 Serum or plasma urea nitrogen/creatinine mass ratio 16 NRG Serum or plasma creatinine measurement w ith calculation of estimated glomerular filtration rate > NRG Serum or plasma glucose measurement (mass/volume) 110 mg/dL 70-105 Serum or plasma calcium measurement (mass/volume) 9.4 mg/dL 8.5-10.1 Serum or plasma total bilirubin measurement (mass/volu me) 0.4 mg/dL 0.1-1.0 Serum or plasma alkaline phosphatase dileep surement (enzymatic activity/volume) 62 U/L 40-136 Serum or plasma aspartate aminotransfera se measurement (enzymatic activity/volume) 19 U/L 5-34 Serum or plasma alanine aminotransferase measurement (enzymatic activity/volume) 20 U/L 0-55 Serum or plasma protein measurement (mass/volume) 7.2 g/dL 6.4-8.2 Serum or plasma albumin measurement (mass/volume) 4.3 g/dL 3.2-4.5 CALCIUM CORRECTED 9.2 mg/dL 8.5-10.1 Serum or plasma troponin i.cardiac measu rement (mass/volume) - 08/16/19 00:15 Serum or plasma troponin i.cardiac measurement (mass/v olume) < ng/mL <0.028 Lipase - 08/16/19 00:15 Lipase 20 U/L 8-78 Manual absolute plasma cell count - 07/23 12/08 00:15 Blood monocytes/100 leukocytes 9 % NRG Manual blood segmented neutrophils/100 leukocytes 73 % NRG Blood band neutrophils/100 leukocytes 2 % NRG Manual blood lymphocytes/100 leukocytes 16 % NRG Blood erythrocyte morphology finding identification NORMAL NRG Serum or plasma C reactive protein measu rement (mass/volume) - 08/16/19 00:15 Serum or plasma C reactive protein measurement (mass/v olume) 0.10 mg/dL 0.00-0.50 Complete urinalysis with reflex to cultu re - 08/16/19 01:10 Urine color determination YELLOW NRG Urine clarity determination CLEAR NR G Urine pH measurement by test strip 8.0 5-9 Specific gravity of urine by test strip 1.020 1.016-1.022 Urine protein assay by test strip, semi-quantitative NEGATIVE NEGATIVE Urine glucose detection by automated test strip NE GATIVE NEGATIVE Erythrocytes detection in urine sediment by light micr oscopy NEGATIVE NEGATIVE Urine ketones detection by automated test strip TR SANA NEGATIVE Urine nitrite detection by test strip NEGATIVE NEGATIVE Urine total bilirubin detection by test strip NEGA TIVE NEGATIVE Urine urobilinogen measurement by automated test strip (mass/volume) 0.2 mg/dL < = 1.0 Urine leukocyte esterase detection by dipstick NEG ATIVE NEGATIVE Automated urine sediment erythrocyte cou nt by microscopy (number/high power field) NONE NRG Automated urine sediment leukocyte count by microscopy (number/high power field) NONE NRG Bacteria detection in urine sediment by light microsco py FEW NRG Squamous epithelial cells detection in u rine sediment by light microscopy 0-2 NRG Crystals detection in urine sediment by light microsco py NONE NRG Casts detection in urine sediment by light microscopy NONE NRG Mucus detection in urine sediment by light microscopy MODERATE NRG Complete urinalysis with reflex to culture NO NRG Encounters ACCT No. Visit Date/Time Discharge Status Pt. Type Provider Facility Loc./Unit Complaint [id number] 08/16/2019 02:00:00 11:30:00 DIS Inpatient KINSEY BOLAÑOS, SOY Dc [facility] 4TH EPIGASTRIC PAIN ,NAUSEA VOMITING,LEUKOCYTOSIS [id number] 08/13/2019 17:54:00 21:40:00 DIS Emergency EDIL LONDON MD [facility] ER CP [id number] 02/25/2019 12:24:00 15:15:00 DIS Emergency RODO CLEVELAND DO [facility] ER BACK PAIN,POSS STONES [id number] 07/26/2018 09:52:00 12:23:00 DIS Outpatient BERNARDA FAIR DO [facility] ENDO SCREENING/REFLUX [id number] 07/19/2018 05:39:00 019 15:20:00 DIS Outpatient BERNARDA FAIR DO [facility] PREOP COLONOSCOPY/EGD
--- OUTSIDE RECORDS SUMMARY | 2019-08-22 16:31 | XMS REPORT | Continuity of Care Document ---
Author Organization Unknown Address Unknown Phone Unavailable Allergies Active Description Code Type Severity Reaction Onset Reported/Identified Relationship to Patient Clinical Status Yes codeine [id number] Drug Allergy Mild NAUSEA 08/16/2019 Medications There [...] 07/26/2018 BERNARDA FAIR DO Ot Z79.899 OTHER FIELD CLINICAL ENGINEER (CURRENT) DRUG THERAPY 07/26/2018 BERNARDA FAIR DO Ot Z87.891 PERSONAL HISTORY OF NICOTINE DEPENDENCE 07/29/2018 BERNARDA FAIR DO Ot I10 ESSENTIAL (PRIMARY) HYPERTENSION 07/29/2018 BERNARDA FAIR DO Ot K20. 8 OTHER ESOPHAGITIS 07/29/2018 BERNARDA FAIR DO Ot K29. 50 UNSPECIFIED CHRONIC GASTRITIS WITHOUT BL 07/29/2018 BERNARDA FAIR DO Ot K44. 9 DIAPHRAGMATIC HERNIA WITHOUT OBSTRUCTION 07/29/2018 BENRARDA FAIR DO Ot K62. 1 RECTAL POLYP 07/29/2018 BERNARDA FAIR DO Ot K63. 5 POLYP OF COLON 07/29/2018 BERNARDA FAIR DO Ot Z12. 11 ENCOUNTER FOR SCREENING FOR MALIGNANT NE 07/29/2018 BERNARDA FAIR DO Ot Z79.899 OTHER FIELD CLINICAL ENGINEER (CURRENT) DRUG THERAPY 07/29/2018 FAIR BERNARDA João [...] 08/17/2019 SOY EUCEDA MD, Ot Z79.899 OTHER FIELD CLINICAL ENGINEER (CURRENT) DRUG THERAPY 08/17/2019 SOY EUCEDA MD, [...] Status Pt. Type Provider Facility Loc./Unit Complaint [id number] 08/16/2019 02:00:00 11:30:00 DIS Inpatient KINSEY BOLAÑOS, SOY Dc [facility] 4TH EPIGASTRIC PAIN ,NAUSEA VOMITING,LEUKOCYTOSIS [id number] 08/13/2019 17:54:00 21:40:00 DIS Emergency EDIL LONDON MD [facility] ER CP [id number] 02/25/2019 12:24:00 15:15:00 DIS Emergency RODO CLEVELAND DO [facility] ER BACK PAIN,POSS STONES [id number] 07/26/2018 09:52:00 12:23:00 DIS Outpatient BERNARDA FAIR DO [facility] ENDO SCREENING/REFLUX [id number] 07/19/2018 05:39:00 019 15:20:00 DIS Outpatient BERNARDA FAIR DO [facility] PREOP COLONOSCOPY/EGD
== END 2019-08-17 11:30 | disposition home or self-care (01) ==
LOC: EDUNIT# 23:59 → ER 08-16 → 4TH 08-16 02:00
PROVIDERS: ADMIT Internal Medicine; ATTEND Internal Medicine
DX: K22.10 Ulcer of esophagus without bleeding (principal); K29.70 Gastritis, unspecified, without bleeding; K21.0 Gastro-esophageal reflux disease with esophagitis; D72.829 Elevated white blood cell count, unspecified; K31.89 Other diseases of stomach and duodenum; K44.9 Diaphragmatic hernia without obstruction or gangrene; I10 Essential (primary) hypertension; F17.210 Nicotine dependence, cigarettes, uncomplicated; Z88.5 Allergy status to narcotic agent; Z79.899 Other long term (current) drug therapy
CPT/HCPCS: 36415; 74022; 76705; 80053; 81000; 83690; 84484; 85007; 85027; 86141; 88305; 93005; 93041; 96374; 96375; G0378

== ENCOUNTER 2020-11-12 04:14 | Emergency (ER) | payer OTHER ==
[~2020-11-12] VITALS: Ht 167.7 cm; Wt 72.7 kg
[~2020-11-12 04:14] MED LIST changes: +DIPH50CA40 PO; +OMEP40CA27 PO; +SUCR1TAB PO
[2020-11-12] MEDS ORDERED: LACTATED RINGERS 1,000 ML IV ONE (05:00)
[2020-11-12] MEDS ORDERED: fentaNYL INJ 100 MCG/2 ML AMP IVP ONE (05:00)
[2020-11-12] MEDS ORDERED: ONDANSETRON 4 MG/2 ML (SDV) Z0FRAN IVP ONE (05:00)
[2020-11-12] MEDS ORDERED: FAMOTIDINE 20MG/2ML IV (PEPCID) IVP ONE (05:00)
[2020-11-12 05:25] LABS: BASOPHILS # (AUTO) 0.1 10^3/uL (0.0-0.1); BASOPHILS % (AUTO) 1 % (0-10); EOSINOPHILS # (AUTO) 0.2 10^3/uL (0.0-0.3); EOSINOPHILS % (AUTO) 1 % (0-10); HEMATOCRIT 45 % (40-54); HEMOGLOBIN 15.6 g/dL (13.3-17.7); LYMPHOCYTES # (AUTO) 2.4 10^3/uL (1.0-4.0); LYMPHOCYTES % (AUTO) 15 % (12-44); MEAN CORPUSCULAR HEMOGLOBIN 33 pg (25-34); MEAN CORPUSCULAR HGB CONC 35 g/dL (32-36); MEAN CORPUSCULAR VOLUME 93 fL (80-99); MEAN PLATELET VOLUME 10.9 fL (9.0-12.2); MONOCYTES # (AUTO) 0.9 10^3/uL (0.0-1.0); MONOCYTES % (AUTO) 5 % (0-12); NEUTROPHILS # (AUTO) 12.5 10^3/uL (1.8-7.8); NEUTROPHILS % (AUTO) 77 % (42-75); PLATELET COUNT 488 10^3/uL (130-400); WHITE BLOOD COUNT 16.2 10^3/uL (4.3-11.0)
[2020-11-12 05:29] LABS: ALBUMIN 4.4 GM/DL (3.2-4.5)
[2020-11-12 05:30] LABS: CHLORIDE 102 MMOL/L (98-107); SODIUM 140 MMOL/L (135-145)
[2020-11-12 05:31] LABS: CALCIUM 9.8 MG/DL (8.5-10.1)
[2020-11-12 05:32] LABS: GLUCOSE 122 MG/DL (70-105); TOTAL PROTEIN 7.6 GM/DL (6.4-8.2)
[2020-11-12 05:33] LABS: CARBON DIOXIDE 24 MMOL/L (21-32)
[2020-11-12 05:34] LABS: BILIRUBIN,TOTAL 0.5 MG/DL (0.1-1.0)
[2020-11-12 05:35] LABS: ALKALINE PHOSPHATASE 63 U/L (40-136)
[2020-11-12 05:36] LABS: CREATININE SERUM 0.96 MG/DL (0.60-1.30); GFR ESTIMATED > 60
[2020-11-12 05:37] LABS: BUN/CREATININE RATIO 14
[2020-11-12 05:39] LABS: ALANINE AMINOTRANSFERASE 18 U/L (0-55); LIPASE 44 U/L (8-78)
[2020-11-12 05:40] LABS: LYMPHOCYTES % (MANUAL) 11 %; MONOCYTES % (MANUAL) 6 %; NEUTROPHILS % (MANUAL) 83 %; RBC MORPH NORMAL
[2020-11-12] MEDS ORDERED: morphine INJ 10 MG/ML 1ML (SYR OR VIAL) IVP STA (06:07)
--- NOTE | 2020-11-12 06:40 | ED Abdominal Pain ---
General Chief Complaint: Abdominal/GI Problems Stated Complaint: VOMITING,DIZZY,POSS FEVER Nursing Triage Note: AMBULATES TO ROOM #7 W/CO NAUSEA, VOMITING, AND ABD DISCOMFORT. STATES ON 11/11/20 AT 0000 HE BEGAN TO FEEL "QUEASY" AND BEGAN TO EXPERIENCE EMESIS AT 2100. HX GERD. Sepsis Screen: No Definite Risk Source of Information: Patient Exam Limitations: No Limitations (JUANITO PACE MD) History of Present Illness Date Seen by Provider: November 12, 2020 Time Seen by Provider: 04:58 Initial Comments This 55-year-old gentleman presents to the emergency room with several hours of nausea, vomiting, and escalating upper abdominal pain. He does report a history of GERD but has never had symptoms this severe. He denies any history of bowel obstruction. His last bowel movement was normal yesterday morning. He denies any fever. He is in obvious distress upon entering the exam room. (JUANITO PACE MD) Allergies and Home Medications Allergies Coded Allergies: codeine (Unverified Adverse Reaction, Mild, NAUSEA, 08/16/19) Home Medications Dicyclomine HCl 20 Mg Tablet, 20 MG PO Q6H PRN for abdominal cramping Prescribed by: ELLEN TERRY on 11/12/20 0715 Diphenhydramine HCl 50 Mg Capsule, 50 MG PO HS PRN for SLEEP, (Reported) Omeprazole 40 Mg Capsule.dr, 40 MG PO DAILY, (Reported) Ondansetron 4 Mg Tab.rapdis, 4 MG PO Q6H PRN for NAUSEA/VOMITING-1ST LINE, (Reported) Ondansetron 4 Mg Tab.rapdis, 4 MG PO Q8H PRN for nausea Prescribed by: ELLEN TERRY on 11/12/20 0715 Sucralfate 1 Gm Tablet, 1 GM PO QIDACHS, (Reported) Patient Home Medication List Home Medication List Reviewed: Yes (JUANITO PACE MD) Review of Systems Review of Systems Constitutional: no symptoms reported EENTM: No Symptoms Reported Respiratory: No Symptoms Reported Cardiovascular: See HPI Gastrointestinal: No Symptoms Reported Genitourinary: No Symptoms Reported Musculoskeletal: no symptoms reported Skin: no symptoms reported Psychiatric/Neurological: No Symptoms Reported Endocrine: No Symptoms Reported Hematologic/Lymphatic: No Symptoms Reported (JUANITO PACE MD) Past Qeemrua-Qisnxd-Pcwfux Hx Past Med/Social Hx: Reviewed Nursing Past Med/Soc Hx (JUANITO PACE MD) Patient Social History Alcohol Use: Rarely Uses Number of Drinks Today: AA Alcohol Beverage of Choice: Beer Smoking Status: Current Everyday Smoker Type Used: Cigarettes 2nd Hand Smoke Exposure: Yes Recent Infectious Disease Expo: No Recent Hopitalizations: No (JUANITO PACE MD) Seasonal Allergies Seasonal Allergies: No (JUANITO PACE MD) Past Medical History Surgeries: Yes (RIGHT KNEE/LEG FX/ORIF; EGD) Orthopedic Respiratory: No Cardiac: Yes (CURRENTLY NOT TAKING MEDS FOR B/P, STATES DOESNT HAVE MONEY FOR IT NOW) Hypertension Neurological: No Genitourinary: No Gastrointestinal: Yes (gastritis, erosive esophagitis) Gastroesophageal Reflux, Polyps, Hiatal Hernia Musculoskeletal: Yes (RIGHT KNEE/ LEG FX/ ORIF) Endocrine: No HEENT: No Cancer: No Psychosocial: No Integumentary: No Blood Disorders: No (JUANITO PACE MD) Family Medical History No Pertinent Family Hx (JUANITO PACE MD) Physical Exam Vital Signs Vital Signs - First Documented 11/12/20 04:39 Temp 36.2 Pulse 103 Resp 20 B/P (MAP) 135/96 (109) Pulse Ox 100 O2 Delivery Room Air (ELLEN TERRY MD) Vital Signs Capillary Refill : Less Than 3 Seconds (JUANITO PACE MD) Height/Weight/BMI Height: 5'7.00" Weight: 160lbs. 0.0oz. 72.351952zy; 25.00 BMI Method:Stated General Appearance: WD/WN, moderate distress HEENT: PERRL/EOMI, normal ENT inspection Neck: normal inspection Respiratory: lungs clear, normal breath sounds, no respiratory distress, no accessory muscle use Cardiovascular: regular rate, rhythm, no edema, no murmur Gastrointestinal: soft, abnormal bowel sounds; No distended Extremities: normal inspection, no pedal edema Neurologic/Psychiatric: caramel cutter hand II-XII nml as tested, no motor/sensory deficits, alert, normal mood/affect, oriented x 3 (JUANITO PACE MD) Progress/Results/Core Measures Results/Orders Lab Results Laboratory Tests Test 11/12/20 04:45 Range/Units White Blood Count 16.2 H 4.3-11.0 10^3/uL Red Blood Count 4.78 4.30-5.52 10^6/uL Hemoglobin 15.6 13.3-17.7 g/dL Hematocrit 45 40-54 % Mean Corpuscular Volume 93 80-99 fL Mean Corpuscular Hemoglobin 33 25-34 pg Mean Corpuscular Hemoglobin Concent 35 32-36 g/dL Red Cell Distribution Width 12.8 10.0-14.5 % Platelet Count 488 H 130-400 10^3/uL Mean Platelet Volume 10.9 9.0-12.2 fL Immature Granulocyte % (Auto) 1 % Neutrophils (%) (Auto) 77 H 42-75 % Lymphocytes (%) (Auto) 15 12-44 % Monocytes (%) (Auto) 5 0-12 % Eosinophils (%) (Auto) 1 0-10 % Basophils (%) (Auto) 1 0-10 % Neutrophils # (Auto) 12.5 H 1.8-7.8 10^3/uL Lymphocytes # (Auto) 2.4 1.0-4.0 10^3/uL Monocytes # (Auto) 0.9 0.0-1.0 10^3/uL Eosinophils # (Auto) 0.2 0.0-0.3 10^3/uL Basophils # (Auto) 0.1 0.0-0.1 10^3/uL Immature Granulocyte # (Auto) 0.1 0.0-0.1 10^3/uL Neutrophils % (Manual) 83 % Lymphocytes % (Manual) 11 % Monocytes % (Manual) 6 % Blood Morphology Comment NORMAL Sodium Level 140 135-145 MMOL/L Potassium Level 4.0 3.6-5.0 MMOL/L Chloride Level 102 98-107 MMOL/L Carbon Dioxide Level 24 21-32 MMOL/L Anion Gap 14 5-14 MMOL/L Blood Urea Nitrogen 13 7-18 MG/DL Creatinine 0.96 0.60-1.30 MG/DL Estimat Glomerular Filtration Rate > 60 BUN/Creatinine Ratio 14 Glucose Level 122 H 70-105 MG/DL Calcium Level 9.8 8.5-10.1 MG/DL Corrected Calcium 9.5 8.5-10.1 MG/DL Total Bilirubin 0.5 0.1-1.0 MG/DL Aspartate Amino Transf (AST/SGOT) 18 5-34 U/L Alanine Aminotransferase (ALT/SGPT) 18 0-55 U/L Alkaline Phosphatase 63 40-136 U/L C-Reactive Protein High Sensitivity 0.10 0.00-0.50 MG/DL Total Protein 7.6 6.4-8.2 GM/DL Albumin 4.4 3.2-4.5 GM/DL Lipase 44 8-78 U/L (ELLEN TERRY MD) Medications Given in ED Current Medications Medications Dose Ordered Sig/Jasmin Route Start Time Stop Time Status Last Admin Dose Admin Famotidine 20 mg ONCE ONCE IVP 11/12/20 05:00 11/12/20 05:02 DC 11/12/20 05:11 20 MG Fentanyl Citrate 50 mcg ONCE ONCE IVP 11/12/20 05:00 11/12/20 05:02 DC 11/12/20 05:11 50 MCG Iohexol 100 ml ONCE ONCE IV 11/12/20 06:45 11/12/20 06:46 DC 11/12/20 06:45 91 ML Lactated Ringer's 1,000 ml @ 0 mls/hr Q0M ONCE IV 11/12/20 05:00 11/12/20 05:02 DC 11/12/20 05:09 0 MLS/HR Ondansetron HCl 8 mg ONCE ONCE IVP 11/12/20 05:00 11/12/20 05:02 DC 11/12/20 05:11 8 MG Sodium Chloride 10 ml NEEDED PRN IV 11/12/20 06:45 11/12/20 06:45 10 ML Sodium Chloride 100 ml ONCE ONCE IV 11/12/20 06:45 11/12/20 06:46 DC 11/12/20 06:45 80 ML (ELLEN TERRY MD) Vital Signs/I&O 11/12/20 04:39 Temp 36.2 Pulse 103 Resp 20 B/P (MAP) 135/96 (109) Pulse Ox 100 O2 Delivery Room Air (ELLEN TERYR MD) Blood Pressure Mean: 109 Progress Progress Note : Time: 06:46 Progress Note Patient was seen and examined. Pain was treated with fentanyl. Nausea and vomiting was treated with Pepcid and Zofran. He received a liter of IV fluid. He was later given morphine for rebound pain. Leukocytosis was noted on the labs. CT of the abdomen and pelvis is now pending for further evaluation. Care of the patient is being transitioned to Dr. Terry at this time. (JUANITO PACE MD) Progress Note : Time: 07:08 Progress Note Patient care assumed at shift change. CT scan was pending at the time of shift change. CT results are as follows: 2 small left lung base nodules unchanged from prior study, moderate hiatal hernia, no acute intra-abdominal pathology is demonstrated. Patient is reexamined. He did have 4 mg of morphine and he states his pain is completely resolved as is his nausea. He is comfortable in the bed. Patient s tates that he has had pain since about 10 PM last night with nausea and vomiting. He denies any chest pain or shortness of breath. He has no family history of early coronary artery disease. He does not currently have a local physician and therefore has no clear follow-up. Patient is counseled on return precautions. He is advised if his pain returns or worsens or he develops fu rther nausea vomiting especially bloody emesis with fever that he needs to come back to the emergency department. He is comfortable with outpatient management and follow-up. He has no specific questions at this time. I will send him home with some Zofran and some Bentyl. Also send him home with a outpatient provider list. His abdomen is soft and nontender at this time. Negative Kennedy's. Possibly a little residual mild epigastric tenderness to palpation. Labs are reviewed and are unremarkable except for a mild leukocytosis. Again patient is comfortable with this plan of care. All questions are sought and answered. Patient is stable for discharge. (ELLEN TERRY MD) Diagnostic Imaging Diagonstic Imaging: CT Plain Films/CT/US/NM/MRI: abdomen Comments [facility] [place], [place] NAME: FELIPE LÓPEZ [facility] REC#: [id number] PT STATUS: REG ER : 1965 PHYSICIAN: JUANITO PACE MD ADMIT DATE: 11/12/20/ER Draft Date of Exam:11/12/20 CT ABDOMEN/PELVIS W PROCEDURE: CT abdomen and pelvis with contrast. TECHNIQUE: Multiple contiguous axial images were obtained through the abdomen and pelvis after administration of intravenous contrast. Auto Exposure Controls were utilized during the CT exam to meet ALARA standards for radiation dose reduction. All CT scans use one or more of the following dose optimizing techniques: automated exposure control, MA and/or KvP adjustment based on patient size and exam type or iterative reconstruction. INDICATION: Upper abdominal pain with nausea and vomiting onset yesterday. CORRELATION STUDY: 08/13/2019 FINDINGS: LOWER THORAX: Generally stable, 7 mm nodule posterior lateral left lower lobe. There does appear to be wall thickening of the lower esophagus with small hiatal hernia. LIVER: Probable tiny cyst hepatic dome. GALLBLADDER: Present and unremarkable. No bile duct dilatation. SPLEEN: Small. PANCREAS: Unremarkable. ADRENAL GLANDS: 3.5 x 4.1 cm low-density left adrenal gland mass generally stable. Right adrenal gland unremarkable. KIDNEYS: Normal configuration. No calcification or obstruction. ABDOMINAL AORTA: Mild atherosclerotic plaque. Nonaneurysmal. GASTROINTESTINAL TRACT: Stomach is relatively collapsed, however, there is suggestion of diffuse gastric wall thickening. No small bowel obstruction. Mild stool throughout the colon. Question areas of asymmetric small bowel wall thickening in the upper abdomen. Negative for appendicitis. No abdominal ascites and/or free air. URINARY BLADDER: Unremarkable. REPRODUCTIVE: Unremarkable. OSSEOUS STRUCTURES: Moderately advanced degenerative changes particularly at the L5-S1 level. Benign-appearing sclerotic foci S2. OTHER: None. IMPRESSION: 1. While stomach is collapsed, there does appear to be prominent gastric wall thickening. Additionally, suggestion of some small bowel wall thickening. Findings may reflect nonspecific gastroenteritis. However, again findings in the stomach, infiltrative process including neoplasm would be difficult to exclude. Additionally, there is wall thickening at the gastroesophageal junction. Particularly if symptoms do not subside, correlation with endoscopy would be recommended. Dictated on workstation # [id number] Dict: 11/12/20 0650 Trans: 11/12/20 0711 SILVIA [id number] Interpreted by: FLORIAN HILL DO Electronically signed by: (ELLEN TERRY MD) Departure Impression Primary Impression: Abdominal pain Qualified Codes: R10.13 - Epigastric pain Disposition: 01 HOME, SELF-CARE Condition: Improved Departure-Patient Inst. Decision time for Depature: 07:12 (ELLEN TERRY MD) Referrals: NO,LOCAL PHYSICIAN (PCP/Family) Primary Care Physician Patient Instructions: Abdominal Pain, Adult ED, LOCAL PHYSICIAN LIST Add. Discharge Instructions: Drink plenty of fluids to stay well-hydrated. Follow a clear liquid diet for the early part of today, you can slowly advance your diet as tolerated throughout the course of the afternoon and evening. I have given you a prescription for Zofran which is a nausea medication you can take every 8 hours as needed. I have also given you a prescription for Bentyl. This is a pain medicine. You can take this 30 minutes before eating up to 4 times a day as needed for stomach cramps and pain. You can also increase your omeprazole to 2 pills once a day for the next couple of weeks to see if this also helps to improve your symptoms. Come back to the emergency department for any return of or worsening abdominal pain especially with vomiting, fever, bloody vomitus, black stool or bloody stool or any other emergent concerning symptoms. Scripts Dicyclomine HCl (Dicyclomine HCl) 20 Mg Tablet 20 MG PO Q6H PRN for abdominal cramping, #20 TAB Prov: ELLEN TERRY MD 11/12/20 Ondansetron (Ondansetron Odt) 4 Mg Tab.rapdis 4 MG PO Q8H PRN for nausea, #15 TAB Prov: ELLEN TERRY MD 11/12/20 JUANITO PACE MD November 12, 2020 06:40 ELLEN TERRY MD November 12, 2020 07:13
[2020-11-12] MEDS ORDERED: NS 100 ML (IVPB) BAG IV ONE (06:45)
[2020-11-12] MEDS ORDERED: HOLD METFORMIN - RECEIVED CONTRAST 20 ML VIAL IV SCH (06:45)
[2020-11-12] MEDS ORDERED: CATHETER FLUSH 10 ML SYR IV PRN (06:45)
[2020-11-12] MEDS ORDERED: IOHEXOL 350 MG/ML 100 ML (OMNIPAQUE 350) VIAL IV ONE (06:45)
--- NOTE | 2020-11-12 07:12 | Diagnostic Imaging Report ---
PROCEDURE: CT abdomen and pelvis with contrast. TECHNIQUE: Multiple contiguous axial images were obtained through the abdomen and pelvis after administration of intravenous contrast. Auto Exposure Controls were utilized during the CT exam to meet ALARA standards for radiation dose reduction. All CT scans use one or more of the following dose optimizing techniques: automated exposure control, MA and/or KvP adjustment based on patient size and exam type or iterative reconstruction. INDICATION: Upper abdominal pain with nausea and vomiting onset yesterday. CORRELATION STUDY: 08/13/2019 FINDINGS: LOWER THORAX: Generally stable, 7 mm nodule posterior lateral left lower lobe. There does appear to be wall thickening of the lower esophagus with small hiatal hernia. LIVER: Probable tiny cyst hepatic dome. GALLBLADDER: Present and unremarkable. No bile duct dilatation. SPLEEN: Small. PANCREAS: Unremarkable. ADRENAL GLANDS: 3.5 x 4.1 cm low-density left adrenal gland mass generally stable. Right adrenal gland unremarkable. KIDNEYS: Normal configuration. No calcification or obstruction. ABDOMINAL AORTA: Mild atherosclerotic plaque. Nonaneurysmal. GASTROINTESTINAL TRACT: Stomach is relatively collapsed, however, there is suggestion of diffuse gastric wall thickening. No small bowel obstruction. Mild stool throughout the colon. Question areas of asymmetric small bowel wall thickening in the upper abdomen. Negative for appendicitis. No abdominal ascites and/or free air. URINARY BLADDER: Unremarkable. REPRODUCTIVE: Unremarkable. OSSEOUS STRUCTURES: Moderately advanced degenerative changes particularly at the L5-S1 level. Benign-appearing sclerotic foci S2. OTHER: None. IMPRESSION: 1. While stomach is collapsed, there does appear to be prominent gastric wall thickening. Additionally, suggestion of some small bowel wall thickening. Findings may reflect nonspecific gastroenteritis. However, again findings in the stomach, infiltrative process including neoplasm would be difficult to exclude. Additionally, there is wall thickening at the gastroesophageal junction. Particularly if symptoms do not subside, correlation with endoscopy would be recommended. Dictated by: Dictated on workstation # [id number]
[2020-11-12] MEDS ORDERED: ONDA4TAB11 PO (07:15)
[2020-11-12] MEDS ORDERED: DICY20TA10 PO (07:15)
[2020-11-12 07:34] VITALS: BP 106/69
== END 2020-11-12 07:34 | disposition home or self-care (01) ==
LOC: EDUNIT# 04:14 → ER 04:17
DX: R10.10 Upper abdominal pain, unspecified (principal); R11.2 Nausea with vomiting, unspecified; I10 Essential (primary) hypertension; K21.00 Gastro-esophageal reflux disease with esophagitis, without bleeding; F17.210 Nicotine dependence, cigarettes, uncomplicated; Z79.899 Other long term (current) drug therapy
CPT/HCPCS: 36415; 74177; 80053; 83690; 85007; 85027; 86141

== ENCOUNTER 2021-02-07 08:53 | Emergency (ER) | payer OTHER ==
[~2021-02-07] VITALS: Ht 167.7 cm; Wt 72.5 kg
[~2021-02-07 08:53] MED LIST changes: +DICY20TA10 PO; -OMEP40CA27 PO; +OMEP40CA6 PO
--- NOTE | 2021-02-07 09:39 | ED General ---
General Stated Complaint: DIZZINESS Source of Information: Patient Exam Limitations: No Limitations (VANDANA MOFFETT,MED STUDENT) History of Present Illness Date Seen by Provider: Feb 07, 2021 Time Seen by Provider: 09:21 Initial Comments Felipe López is a 55yo M with PMH of GERD who presents with CC of dizziness. He states that one hour ago he was walking at work when he experienced a sudden onset, sharp, centrally located chest pain followed by vertigo. The pain only l asted 10 seconds, and has not returned. He states that this pain was followed by light-headedness and a sense of spinning, so he had to sit down. He states that he is pain-free but still feeling light-headed; it is worsened with sitting up. He also endorses tremors and bilateral LE numbness. He denies fever, n/v/d, and SOB. None of this has ever happened to him before. He states that he drinks 2 beers nightly (including last night) and has not change his intake amount/timing. He is not COVID-19 vaccinated. Timing/Duration: 1 Hour Severity: Moderate Associated Systoms: Other (Tremors) (VANDANA MOFFETT,MED STUDENT) Allergies and Home Medications Allergies Coded Allergies: codeine (Unverified Adverse Reaction, Mild, NAUSEA, 08/16/19) Home Medications Dicyclomine HCl 20 Mg Tablet, 20 MG PO Q6H PRN for abdominal cramping Prescribed by: ELLEN TERRY on 11/12/20 0715 Diphenhydramine HCl 50 Mg Capsule, 50 MG PO HS PRN for SLEEP, (Reported) Omeprazole 40 Mg Capsule.dr, 40 MG PO DAILY, (Reported) Ondansetron 4 Mg Tab.rapdis, 4 MG PO Q6H PRN for NAUSEA/VOMITING-1ST LINE, (Reported) Ondansetron 4 Mg Tab.rapdis, 4 MG PO Q8H PRN for nausea Prescribed by: ELLEN TERRY on 11/12/20714 Sucralfate 1 Gm Tablet, 1 GM PO QIDACHS, (Reported) Patient Home Medication List Home Medication List Reviewed: Yes (JUANITO PACE MD) Review of Systems Review of Systems Constitutional: dizziness EENTM: no symptoms reported Respiratory: no symptoms reported Cardiovascular: see HPI; No edema, No palpitations Gastrointestinal: no symptoms reported Genitourinary: no symptoms reported Musculoskeletal: no symptoms reported Skin: no symptoms reported Psychiatric/Neurological: See HPI, Numbness (Bilateral lower extremities), Tremors Hematologic/Lymphatic: No Symptoms Reported Immunological/Allergic: no symptoms reported (VANDANA MOFFETT MED STUDENT) Past Zsgauqc-Tkpltq-Hpnnuh Hx Seasonal Allergies Seasonal Allergies: No (VANDANA MOFFETT,JABARI GUY) Past Medical History Surgeries: Yes (RIGHT KNEE/LEG FX/ORIF; EGD) Orthopedic Respiratory: No Cardiac: Yes (CURRENTLY NOT TAKING MEDS FOR B/P, STATES DOESNT HAVE MONEY FOR IT NOW) Hypertension Neurological: No Genitourinary: No Gastrointestinal: Yes (gastritis, erosive esophagitis) Gastroesophageal Reflux, Polyps, Hiatal Hernia Musculoskeletal: Yes (RIGHT KNEE/ LEG FX/ ORIF) Endocrine: No HEENT: No Cancer: No Psychosocial: No Integumentary: No Blood Disorders: No (VANDANA MOFFETT,JABARI GUY) Family Medical History No Pertinent Family Hx (VANDANA MOFFETT MED STUDENT) Physical Exam Vital Signs Vital Signs - First Documented 02/07/21 08:53 Temp 36.6 Pulse 97 Resp 11 B/P (MAP) 137/85 (102) Pulse Ox 96 O2 Delivery Room Air (JUANITO PACE MD) Vital Signs Capillary Refill : (VANDANA MOFFETT,JABARI STUDENT) Height, Weight, BMI Height: 5'7.00" Weight: 160lbs. 0.0oz. 72.675446xm; 25.00 BMI Method:Stated General Appearance: Anxious Eyes: Bilateral Eye PERRL, Bilateral Eye EOMI HEENT: PERRL/EOMI, TMs Normal, Pharyngeal Erythema Neck: Full Range of Motion, Non Tender; No Carotid Bruit Respiratory: Normal Breath Sounds, No Respiratory Distress Cardiovascular: No Edema, No JVD, Normal Peripheral Pulses, Tachycardia (Sinus) Gastrointestinal: Non Tender, Soft Back: Normal Inspection Extremity: Normal Capillary Refill, Normal Range of Motion, No Pedal Edema Neurologic/Psychiatric: Alert, Oriented x3 Skin: Normal Color, Warm/Dry (VANDANA MOFFETT,MED STUDENT) Progress/Results/Core Measures Suspected Sepsis SIRS Temperature: Pulse: Respiratory Rate: Blood Pressure / Mean: (VANDANA MOFFETT MED STUDENT) Results/Orders Lab Results Laboratory Tests Test 02/07/21 09:10 02/07/21 10:10 02/07/21 12:02 Range/Units White Blood Count 11.5 H 4.3-11.0 10^3/uL Red Blood Count 4.35 4.30-5.52 10^6/uL Hemoglobin 13.9 13.3-17.7 g/dL Hematocrit 42 40-54 % Mean Corpuscular Volume 96 80-99 fL Mean Corpuscular Hemoglobin 32 25-34 pg Mean Corpuscular Hemoglobin Concent 33 32-36 g/dL Red Cell Distribution Width 13.5 10.0-14.5 % Platelet Count 397 130-400 10^3/uL Mean Platelet Volume 10.3 9.0-12.2 fL Immature Granulocyte % (Auto) 1 % Neutrophils (%) (Auto) 69 42-75 % Lymphocytes (%) (Auto) 18 12-44 % Monocytes (%) (Auto) 9 0-12 % Eosinophils (%) (Auto) 2 0-10 % Basophils (%) (Auto) 1 0-10 % Neutrophils # (Auto) 7.9 H 1.8-7.8 10^3/uL Lymphocytes # (Auto) 2.1 1.0-4.0 10^3/uL Monocytes # (Auto) 1.0 0.0-1.0 10^3/uL Eosinophils # (Auto) 0.3 0.0-0.3 10^3/uL Basophils # (Auto) 0.1 0.0-0.1 10^3/uL Immature Granulocyte # (Auto) 0.1 0.0-0.1 10^3/uL Prothrombin Time 12.8 12.2-14.7 SEC INR Comment 0.9 0.8-1.4 Activated Partial Thromboplast Time 23 L 24-35 SEC Sodium Level 137 135-145 MMOL/L Potassium Level 3.9 3.6-5.0 MMOL/L Chloride Level 106 98-107 MMOL/L Carbon Dioxide Level 19 L 21-32 MMOL/L Anion Gap 12 5-14 MMOL/L Blood Urea Nitrogen 11 7-18 MG/DL Creatinine 0.95 0.60-1.30 MG/DL Estimat Glomerular Filtration Rate 82 BUN/Creatinine Ratio 12 Glucose Level 110 H 70-105 MG/DL Calcium Level 9.4 8.5-10.1 MG/DL Corrected Calcium 9.2 8.5-10.1 MG/DL Magnesium Level 1.9 1.6-2.4 MG/DL Total Bilirubin 0.5 0.1-1.0 MG/DL Aspartate Amino Transf (AST/SGOT) 20 5-34 U/L Alanine Aminotransferase (ALT/SGPT) 21 0-55 U/L Alkaline Phosphatase 58 40-136 U/L Myoglobin 42.5 10.0-92.0 NG/ML Troponin I < 0.028 < 0.028 <0.028 NG/ML C-Reactive Protein High Sensitivity 0.12 0.00-0.50 MG/DL Total Protein 7.4 6.4-8.2 GM/DL Albumin 4.2 3.2-4.5 GM/DL Serum Alcohol < 10 <10 MG/DL Influenza Type A (RT-PCR) Not Detected Not Detecte Influenza Type B (RT-PCR) Not Detected Not Detecte SARS-CoV-2 RNA (RT-PCR) Not Detected Not Detecte (JUANITO PACE MD) My Orders Orders - JUANITO PACE MD Cbc With Automated Diff (02/07/21 09:21) Magnesium (02/07/21 09:21) Chest 1 View, Ap/Pa Only (02/07/21 09:21) Ekg Tracing (02/07/21 09:21) Comprehensive Metabolic Panel (02/07/21 09:21) Myoglobin Serum (02/07/21 09:21) Protime With Inr (02/07/21 09:21) Partial Thromboplastin Time (02/07/21 09:21) O2 (02/07/21 09:21) Monitor-Rhythm Ecg Trace Only (02/07/21 09:21) Ed Iv/Invasive Line Start (02/07/21 09:21) Troponin I (02/07/21 09:21) Alcohol (02/07/21 09:21) Hs C Reactive Protein (02/07/21 09:39) Covid 19 Inhouse Test (02/07/21 09:39) Influenza A And B By Pcr (02/07/21 09:39) Ed Iv/Invasive Line Start (02/07/21 09:39) Lactated Ringers (Lr 1000 Ml Iv Solution (02/07/21 09:45) Acetaminophen Tablet (Tylenol Tablet) (02/07/21 09:45) Aspirin Chewable Tablet (Baby Aspirin Ch (02/07/21 09:45) Troponin I (02/07/21 12:10) (JUANITO PACE MD) Medications Given in ED (JUANITO PACE MD) Vital Signs/I&O 02/07/21 02/07/21 08:53 12:51 Temp 36.6 36.6 Pulse 97 84 Resp 11 11 B/P (MAP) 137/85 (102) 130/85 (102) Pulse Ox 96 96 O2 Delivery Room Air Room Air (JUANITO PACE MD) Vital Signs/I&O Capillary Refill : (VANDANA MOFFETT,MED STUDENT) Progress Note : Progress Note Chest pain had resolved by the time of arrival. Chest pain did not return. On presentation he had some tremor suggestive of chills and his skin felt warm despite not measuring a fever. He was treated with Tylenol and IV fluids with resolution of his symptoms. Work-up was unremarkable including a 4-hour troponin. I discussed the situation with the patient at length and described possible causes of his pain and lightheadedness. Among these were hypovolemia, viral illness with early chills, arrhythmia, angina, etc. I made him aware that his cardiac evaluation is not complete and needs to be continued in the outpatient setting. Return precautions were reviewed. See discharge instructions for further discussion. COVID swab was negative. (JUANITO PACE MD) ECG Initial ECG Impression Date: Feb 07, 2021 Initial ECG Impression Time: 09:21 Initial ECG Rate: 100 Initial ECG Rhythm: S.Tach Comment Sinus tachycardia with no ST elevation or depression. Left axis deviation. No abnormal intervals. (JUANITO PACE MD) Diagnostic Imaging Diagonstic Imaging: Xray Plain Films/CT/US/NM/MRI: chest Comments Draft x-ray report reviewed by me. See report below: NAME: FELIPE LÓPEZ [facility] REC#: [id number] PT STATUS: DEP ER : 1965 PHYSICIAN: JUANITO PACE MD ADMIT DATE: 02/07/21/ER Signed Date of Exam:02/07/21 CHEST 1 VIEW, AP/PA ONLY Clinical indication: Patient with chest pain. Exam: Portable chest x-ray upright view. Comparisons: Chest x-ray dated 08/13/2019. Findings: Lungs/pleura: Lungs are clear. There is no pneumothorax. There is no pleural effusion. Mediastinum: Unremarkable. Pulmonary vasculature: Unremarkable. Heart: Unremarkable. Bones/extrathoracic soft tissue: There are degenerative spurs involving the spine. Impression: There is no radiographic evidence of acute cardiopulmonary process. Dictated by: Dictated on workstation # [id number] (JUANITO PACE MD) Departure Impression Primary Impression: Chest pain Qualified Codes: R07.9 - Chest pain, unspecified Additional Impression: Lightheadedness Disposition: 01 HOME, SELF-CARE Condition: Improved Departure-Patient Inst. Decision time for Depature: 12:44 (JUANITO PACE MD) Referrals: JALEN OCHOA MD FACP FACC CCDS NO,LOCAL PHYSICIAN (PCP) Primary Care Physician Patient Instructions: Chest Pain (DC) Add. Discharge Instructions: Drink plenty of clear liquids to stay well-hydrated. Stay home from work tomorrow and rest. Take aspirin 81 mg daily until otherwise instructed. Work toward quitting smoking as rapidly as possible. You should follow-up with a craps manager and a primary care provider soon as possible. You need further cardiac work-up to ensure your heart is healthy. The exact cause of your chest pain and lightheadedness are not certain at this time and warrant further evaluation. Call with questions or concerns. Return to the ER if you have worsening symptoms. Work/School Note: Work Release Form Date Seen in the Emergency Department: Feb 07, 2021 Return to Work: Feb 09, 2021 Restrictions: No Restrictions Medical Student Attestation and Attending Note: I have personally interviewed and examined this patient along with PAUL Field. I have reviewed student documentation including history, physical, and assessments. I agree with the documentation except where otherwise noted. Exam: General: Alert, oriented, no acute distress, well developed HEENT: Normocephalic and atraumatic Heart: Regular rate and rhythm without murmur Lungs: Clear to auscultation bilaterally with normal effort Abdomen: Soft, nontender, nondistended, normal bowel sounds Ext: no edema Neuropsych: Alert, oriented, no focal deficits Skin: Warm and dry without rashes (JUANITO PACE MD) VANDANA MOFFETT,MED STUDENT Feb 07, 2021 09:38 JUANITO PACE MD Feb 07, 2021 12:46
[2021-02-07] MEDS ORDERED: LACTATED RINGERS 1,000 ML IV ONE (09:45)
[2021-02-07] MEDS ORDERED: ACETAMINOPHEN 500 MG TAB (TYLENOL) PO ONE (09:45)
[2021-02-07] MEDS ORDERED: ASPIRIN 81 MG CHEW (CHILDREN'S ASA) PO ONE (09:45)
[2021-02-07 09:59] LABS: BASOPHILS # (AUTO) 0.1 10^3/uL (0.0-0.1); BASOPHILS % (AUTO) 1 % (0-10); EOSINOPHILS # (AUTO) 0.3 10^3/uL (0.0-0.3); EOSINOPHILS % (AUTO) 2 % (0-10); HEMATOCRIT 42 % (40-54); HEMOGLOBIN 13.9 g/dL (13.3-17.7); LYMPHOCYTES # (AUTO) 2.1 10^3/uL (1.0-4.0); LYMPHOCYTES % (AUTO) 18 % (12-44); MEAN CORPUSCULAR HEMOGLOBIN 32 pg (25-34); MEAN CORPUSCULAR HGB CONC 33 g/dL (32-36); MEAN CORPUSCULAR VOLUME 96 fL (80-99); MEAN PLATELET VOLUME 10.3 fL (9.0-12.2); MONOCYTES % (AUTO) 9 % (0-12); NEUTROPHILS # (AUTO) 7.9 10^3/uL (1.8-7.8); NEUTROPHILS % (AUTO) 69 % (42-75); PLATELET COUNT 397 10^3/uL (130-400); WHITE BLOOD COUNT 11.5 10^3/uL (4.3-11.0)
--- NOTE | 2021-02-07 10:03 | Diagnostic Imaging Report ---
Clinical indication: Patient with chest pain. Exam: Portable chest x-ray upright view. Comparisons: Chest x-ray dated 08/13/2019. Findings: Lungs/pleura: Lungs are clear. There is no pneumothorax. There is no pleural effusion. Mediastinum: Unremarkable. Pulmonary vasculature: Unremarkable. Heart: Unremarkable. Bones/extrathoracic soft tissue: There are degenerative spurs involving the spine. Impression: There is no radiographic evidence of acute cardiopulmonary process. Dictated by: Dictated on workstation # [id number]
[2021-02-07 10:12] LABS: INR 0.9 (0.8-1.4); PROTHROMBIN TIME PATIENT 12.8 SEC (12.2-14.7)
[2021-02-07 10:13] LABS: ALBUMIN 4.2 GM/DL (3.2-4.5)
[2021-02-07 10:14] LABS: POTASSIUM 3.9 MMOL/L (3.6-5.0)
[2021-02-07 10:15] LABS: CALCIUM 9.4 MG/DL (8.5-10.1)
[2021-02-07 10:16] LABS: TOTAL PROTEIN 7.4 GM/DL (6.4-8.2)
[2021-02-07 10:18] LABS: BILIRUBIN,TOTAL 0.5 MG/DL (0.1-1.0)
[2021-02-07 10:20] LABS: CREATININE SERUM 0.95 MG/DL (0.60-1.30)
[2021-02-07 10:22] LABS: MAGNESIUM 1.9 MG/DL (1.6-2.4)
[2021-02-07 12:51] VITALS: BP 130/85
== END 2021-02-07 12:51 | disposition home or self-care (01) ==
LOC: EDUNIT# 08:53 → ER 08:55
DX: R07.9 Chest pain, unspecified (principal); R42 Dizziness and giddiness; I10 Essential (primary) hypertension; K21.9 Gastro-esophageal reflux disease without esophagitis; Z20.822 Contact with and (suspected) exposure to COVID-19; Z79.899 Other long term (current) drug therapy
CPT/HCPCS: 71045; 80053; 83735; 83874; 84484; 85025; 85610; 85730; 86141; 87636; 93041; 99284; G0480; 36415; 80320; 93005

== ENCOUNTER 2021-12-02 10:47 | Emergency (ER) | payer OTHER ==
[~2021-12-02] VITALS: Ht 168 cm; Wt 71.6 kg
[~2021-12-02 10:47] MED LIST changes: +DICY20TA PO; -DICY20TA10 PO; +DIPH-809 PO; -DIPH50CA40 PO; +HYDR-4085 PO; -HYDR-87 PO; +OMEP20TA56 PO; -OMEP20TA7 PO
[2021-12-02 11:21] LABS: BASOPHILS # (AUTO) 0.1 10^3/uL (0.0-0.1); BASOPHILS % (AUTO) 1 % (0-10); EOSINOPHILS # (AUTO) 0.1 10^3/uL (0.0-0.3); EOSINOPHILS % (AUTO) 1 % (0-10); HEMATOCRIT 45 % (40-54); HEMOGLOBIN 15.2 g/dL (13.3-17.7); LYMPHOCYTES # (AUTO) 2.2 10^3/uL (1.0-4.0); LYMPHOCYTES % (AUTO) 15 % (12-44); MEAN CORPUSCULAR HEMOGLOBIN 32 pg (25-34); MEAN CORPUSCULAR HGB CONC 34 g/dL (32-36); MEAN CORPUSCULAR VOLUME 94 fL (80-99); MEAN PLATELET VOLUME 10.1 fL (9.0-12.2); MONOCYTES # (AUTO) 0.9 10^3/uL (0.0-1.0); MONOCYTES % (AUTO) 6 % (0-12); NEUTROPHILS # (AUTO) 11.5 10^3/uL (1.8-7.8); NEUTROPHILS % (AUTO) 77 % (42-75); PLATELET COUNT 440 10^3/uL (130-400); WHITE BLOOD COUNT 14.9 10^3/uL (4.3-11.0)
[2021-12-02 11:22] LABS: ALBUMIN 4.7 GM/DL (3.2-4.5); CHLORIDE 102 MMOL/L (98-107); POTASSIUM 4.4 MMOL/L (3.6-5.0); SODIUM 136 MMOL/L (135-145)
[2021-12-02 11:24] LABS: CALCIUM 9.6 MG/DL (8.5-10.1)
[2021-12-02 11:25] LABS: GLUCOSE 92 MG/DL (70-105); TOTAL PROTEIN 8.2 GM/DL (6.4-8.2)
[2021-12-02 11:26] LABS: CARBON DIOXIDE 22 MMOL/L (21-32)
[2021-12-02 11:27] LABS: BILIRUBIN,TOTAL 0.6 MG/DL (0.1-1.0); INR 0.9 (0.8-1.4); PROTHROMBIN TIME PATIENT 12.7 SEC (12.2-14.7)
[2021-12-02 11:28] LABS: ALKALINE PHOSPHATASE 67 U/L (40-136); CREATININE SERUM 0.94 MG/DL (0.60-1.30); GFR ESTIMATED 95
[2021-12-02 11:29] LABS: BUN/CREATININE RATIO 19
[2021-12-02 11:31] LABS: ALANINE AMINOTRANSFERASE 20 U/L (0-55); MAGNESIUM 2.2 MG/DL (1.6-2.4)
--- NOTE | 2021-12-02 11:38 | ED Neurological Problem ---
General Chief Complaint: Neurological Problems Stated Complaint: BODY NUMBESS Nursing Triage Note: PT AMBULATORY TO ROOM. PT STATES HE WAS SEEN AT [facility] BEFORE COMING HERE AND THEY TOLD HIM HE NEEDED EVALUATED AT THE ER. PT UNABLE TO RECALL THE REASON THEY WANTED HIM TO COME BUT HE STATES "THERE WAS SOMETHING WRONG WITH MY BLOOD SUGAR." PT STATES HE DROVE HIMSELF HERE, HE REFUSED THE AMBULANCE RIDE. PT STATES HE INITIALLY WENT TO THE CLINIC BECAUSE HE WAS DRIVING THIS AM, "GOT TUNNEL VISION, DIZZY, AND NUMB ALL OVER." PT STATES HE FEELS NUMB FROM HEAD TO TOE Source: patient Exam Limitations: no limitations History of Present Illness Date Seen by Provider: Dec 02, 2021 Time Seen by Provider: 11:20 Initial Comments This is a well-appearing 56-year-old male who presented to the ER via POV with complaints of tunnel vision that started this morning and all over body numbness. States that he got up this morning drink a couple coffee with creamer and sweet and low, had not eaten anything yet. On his way to work he all of a sudden developed tunnel vision and had all over body numbness. States that his tunnel vision only lasted for a few moments, however he still has the rgiu-yeq-[id number] sensation all over his body. He went to the [facility] walk-in for evaluation and was found to have a low blood sugar. He was given some peanut butter while he was there and was instructed to go to the emergency department for further evaluation. At this time he has only ringing in his ears which she states is chronic and all over paresthesia. No fever, chills, cough, shortness of breath, nausea, vomiting, diarrhea, abdominal pain. No known tick bites. Allergies and Home Medications Allergies Coded Allergies: codeine (Unverified Adverse Reaction, Mild, NAUSEA, 08/16/19) Patient Home Medication List Home Medication List Reviewed: Yes Dicyclomine HCl (Dicyclomine HCl) 20 Mg Tablet, 20 MG PO Q6H PRN for abdominal cramping Prescribed by: ELLEN ETRRY on 11/12/20 0715 Diphenhydramine HCl (Sleep Aid) 50 Mg Capsule, 50 MG PO HS PRN for SLEEP, (R eported) Entered as Reported by: REGINA GARZA on 08/16/19 0818 Omeprazole (Omeprazole) 40 Mg Capsule.dr, 40 MG PO DAILY, (Reported) Entered as Reported by: REGINA GARZA on 08/16/19812 Ondansetron (Ondansetron Odt) 4 Mg Tab.rapdis, 4 MG PO Q6H PRN for NAUSEA/VOMITING-1ST LINE, (Reported) Entered as Reported by: REGINA GARZA on 08/16/19812 Ondansetron (Ondansetron Odt) 4 Mg Tab.rapdis, 4 MG PO Q8H PRN for nausea Prescribed by: ELLEN TERRY on 11/12/20 0715 Sucralfate (Sucralfate) 1 Gm Tablet, 1 GM PO QIDACHS, (Reported) Entered as Reported by: REGINA GARZA on 08/16/19812 Review of Systems Review of Systems Constitutional: No chills; dizziness; No fever Eyes: Denies Pain, Denies Photophobia; Tunnel Vision Ears, Nose, Mouth, Throat: see HPI; denies ear pain Respiratory: No cough, No short of breath Cardiovascular: see HPI, chest pain; No palpitations Gastrointestinal: no symptoms reported Genitourinary: no symptoms reported Musculoskeletal: no symptoms reported Skin: no symptoms reported Psychiatric/Neurological: See HPI, Numbness Endocrine: No Symptoms Reported Hematologic/Lymphatic: No Symptoms Reported Past Tcddpdm-Rmarug-Gefbbj Hx Patient Social History Tobacco Use?: No Use of E-Cig and/or Vaping dev: No Substance use?: No Alcohol Use?: Yes Alcohol type: Beer Alcohol Frequency: Several times a month Immunizations Up To Date Influenza Vaccine Up-to-Date: No; Not Current Seasonal Allergies Seasonal Allergies: No Past Medical History Surgeries: Yes (RIGHT KNEE/LEG FX/ORIF; EGD) Orthopedic Respiratory: No Cardiac: Yes (CURRENTLY NOT TAKING MEDS FOR B/P, STATES DOESNT HAVE MONEY FOR IT NOW) Hypertension Neurological: No Genitourinary: No Gastrointestinal: Yes (gastritis, erosive esophagitis) Gastroesophageal Reflux, Polyps, Hiatal Hernia Musculoskeletal: Yes (RIGHT KNEE/ LEG FX/ ORIF) Endocrine: No HEENT: No Cancer: No Psychosocial: No Integumentary: No Blood Disorders: No Family Medical History No Pertinent Family Hx Physical Exam Vital Signs Vital Signs - First Documented 12/02/21 10:54 Temp 36.8 Pulse 103 Resp 12 B/P (MAP) 143/91 (108) Pulse Ox 97 Capillary Refill : Height, Weight, BMI Height: 5'7.00" Weight: 160lbs. 0.0oz. 72.760808ls; 25.00 BMI Method:Stated General Appearance: WD/WN, no apparent distress HEENT: PERRL/EOMI, normal ENT inspection; No TMs normal (right occluded with cerumen, left intact, no erythema, drainage, retractions or bulging. ); pharynx normal Neck: full range of motion, supple, normal inspection Respiratory: lungs clear, normal breath sounds, no respiratory distress, no accessory muscle use Cardiovascular: regular rate, rhythm, no edema, no murmur; No friction rub Peripheral Pulses: 2+ Carotid (R), 2+ Carotid (L) Gastrointestinal: normal bowel sounds, non tender, soft, no organomegaly; No no pulsatile mass, No guarding Back: normal inspection Extremities: normal range of motion, normal inspection, no pedal edema Neurologic/Psychiatric: no motor/sensory deficits, alert, normal mood/affect, oriented x 3 Crainal Nerves: normal hearing, normal speech, PERRL; No facial asymmetry, No facial droop, No facial paresthesias, No facial weakness, No gaze palsy Coordination/Gait: normal gait Motor/Sensory: no motor deficit, no pronator drift, sensory deficit (g eneralized "numbness" ) Skin: normal color, warm/dry Progress/Results/Core Measures Results/Orders Lab Results Laboratory Tests Test 12/02/21 10:59 12/02/21 11:04 12/02/21 13:43 Range/Units White Blood Count 14.9 H 4.3-11.0 10^3/uL Red Blood Count 4.77 4.30-5.52 10^6/uL Hemoglobin 15.2 13.3-17.7 g/dL Hematocrit 45 40-54 % Mean Corpuscular Volume 94 80-99 fL Mean Corpuscular Hemoglobin 32 25-34 pg Mean Corpuscular Hemoglobin Concent 34 32-36 g/dL Red Cell Distribution Width 13.4 10.0-14.5 % Platelet Count 440 H 130-400 10^3/uL Mean Platelet Volume 10.1 9.0-12.2 fL Immature Granulocyte % (Auto) 1 % Neutrophils (%) (Auto) 77 H 42-75 % Lymphocytes (%) (Auto) 15 12-44 % Monocytes (%) (Auto) 6 0-12 % Eosinophils (%) (Auto) 1 0-10 % Basophils (%) (Auto) 1 0-10 % Neutrophils # (Auto) 11.5 H 1.8-7.8 10^3/uL Lymphocytes # (Auto) 2.2 1.0-4.0 10^3/uL Monocytes # (Auto) 0.9 0.0-1.0 10^3/uL Eosinophils # (Auto) 0.1 0.0-0.3 10^3/uL Basophils # (Auto) 0.1 0.0-0.1 10^3/uL Immature Granulocyte # (Auto) 0.1 0.0-0.1 10^3/uL Neutrophils % (Manual) 72 % Lymphocytes % (Manual) 18 % Monocytes % (Manual) 6 % Eosinophils % (Manual) 2 % Basophils % (Manual) 0 % Band Neutrophils 2 % Blood Morphology Comment NORMAL Erythrocyte Sedimentation Rate 7 0-30 MM/HR Prothrombin Time 12.7 12.2-14.7 SEC INR Comment 0.9 0.8-1.4 Activated Partial Thromboplast Time 26 24-35 SEC D-Dimer 0.62 H 0.00-0.49 UG/ML Sodium Level 136 135-145 MMOL/L Potassium Level 4.4 3.6-5.0 MMOL/L Chloride Level 102 98-107 MMOL/L Carbon Dioxide Level 22 21-32 MMOL/L Anion Gap 12 5-14 MMOL/L Blood Urea Nitrogen 18 7-18 MG/DL Creatinine 0.94 0.60-1.30 MG/DL Estimat Glomerular Filtration Rate 95 BUN/Creatinine Ratio 19 Glucose Level 92 70-105 MG/DL Mean Blood Glucose 103 <=126 mg/dL Hemoglobin A1c 5.2 4.0-5.6 % Calcium Level 9.6 8.5-10.1 MG/DL Corrected Calcium 8.5-10.1 MG/DL Magnesium Level 2.2 1.6-2.4 MG/DL Total Bilirubin 0.6 0.1-1.0 MG/DL Aspartate Amino Transf (AST/SGOT) 20 5-34 U/L Alanine Aminotransferase (ALT/SGPT) 20 0-55 U/L Alkaline Phosphatase 67 40-136 U/L Myoglobin 39.3 10.0-92.0 NG/ML Troponin I < 0.028 <0.028 NG/ML Total Protein 8.2 6.4-8.2 GM/DL Albumin 4.7 H 3.2-4.5 GM/DL Vitamin B12 Level 957 200-5493 pg/mL Thyroid Stimulating Hormone (TSH) 0.34 L 0.35-4.94 UIU/ML Glucometer 104 81 70-110 MG/DL My Orders Orders - ILIA MONTERO BEAD WRAPPER Cbc With Automated Diff (12/02/21 11:13) Magnesium (12/02/21 11:13) Chest 1 View, Ap/Pa Only (12/02/21 11:13) Ekg Tracing (12/02/21 11:13) Comprehensive Metabolic Panel (12/02/21 11:13) Myoglobin Serum (12/02/21 11:13) Protime With Inr (12/02/21 11:13) Partial Thromboplastin Time (12/02/21 11:13) O2 (12/02/21 11:13) Monitor-Rhythm Ecg Trace Only (12/02/21 11:13) Ed Iv/Invasive Line Start (12/02/21 11:13) Fibrin Degradation Products (12/02/21 11:13) Troponin I [place] (12/02/21 11:13) Accucheck Stat ONCE (12/02/21 11:13) Manual Differential (12/02/21 10:59) Erythrocyte Sedimentation Rate (12/02/21 11:29) Vitamin B 12 (12/02/21 11:29) Thyroid Stimulating Hormone (12/02/21 11:29) Ct Head Wo (12/02/21 11:31) Hemoglobin A1c (12/02/21 11:34) Tetracaine 0.5% Ophth Yajaira Sdv (Tetracai (12/02/21 13:15) Medications Given in ED Current Medications Medications Dose Ordered Sig/Jasmin Route Start Time Stop Time Status Last Admin Dose Admin Tetracaine HCl 4 ml ONCE ONCE OU 12/02/21 13:15 12/02/21 13:16 DC 12/02/21 13:24 4 ML Vital Signs/I&O 12/02/21 12/02/21 10:54 13:44 Temp 36.8 Pulse 103 95 Resp 12 20 B/P (MAP) 143/91 (108) 130/78 Pulse Ox 97 97 Blood Pressure Mean: 108 FSBG Bedside Testing Finger Stick Blood Glucose: 104 Blood Glucose Action Taken: fund director notified Progress Progress Note : Progress Note Patient examined and in no acute distress. He does not have any unilateral facial weakness, no weakness in either of his upper or lower extremities. NIH of 0. His blood glucose upon arrival is 104. Does note that he has had some intermittent chest discomfort over the past week however he is not currently experiencing any chest pain. We will go ahead and initiate cardiac and neuro work-up at this time. We will add thyroid, inflammatory markers, vitamin B12 level, hemoglobin A1c. All of his labs and imaging were unremarkable. Discussed that he should establish with a primary care provider so they can continue his work-up. Would recommend a MRI for further evaluation. Notes he has had other previous brief episodes of tunnel vision, but it only lasted a few seconds. Obtained ocular pressure in bilateral eyes, he was found to have an ocular pressure of 27 in his right eye and 24 in his left eye. States he has not seen an eye doctor since he was 39. Denies floaters, flashing, double vision, or blurred vision. No eye pain. Discussed case with Dr. Rubio office and patient is to follow up tomorrow for ocular hypertension, verbalized understanding. States his symptoms have resolved and he is "hungry" and ready to discharge. Discharge POC reviewed and he is agreeable with plan. He is to return to ER if he has any new, persistent, or worsening symptoms. Verbalized understanding. Initial ECG Impression Date: Dec 02, 2021 Initial ECG Impression Time: 11:19 Initial ECG Rate: 94 Initial ECG Rhythm: Normal Sinus Initial ECG Intervals: Normal Initial ECG Impression: Normal Initial ECG Comparisson: No Previous ECG Available Diagnostic Imaging Diagonstic Imaging: CT Plain Films/CT/US/NM/MRI: head Comments [facility], [place] NAME: FELIPE LÓPEZ Alexandra [facility] REC#: [id number] PT STATUS: REG ER : 1965 PHYSICIAN: ILIA MONTERO APRN ADMIT DATE: 12/02/21/ER Signed Date of Exam:12/02/21 CT HEAD WO INDICATION: Numbness and lightheadedness and tunnel vision. TECHNIQUE: Multiple contiguous axial images were obtained through the brain without the use of intravenous contrast. Auto Exposure Controls were utilized during the CT exam to meet ALARA standards for radiation dose reduction. There is no prior head CT for comparison. FINDINGS: There were no extra-axial fluid collections. No intracranial hemorrhage. No intracranial mass or mass effect. No midline shift. The ventricles are normal in size and position. There were no focal parenchymal abnormalities in the brain. Calvarial windows are unremarkable. Visualized portions of the orbits and sinuses are unremarkable. IMPRESSION: Negative noncontrast brain CT. Dictated by: Dictated on workstation # [id number] Dict: 12/02/21 1216 Trans: 12/02/21 1245 Interpreted by: DRE BUTLER MD Electronically signed by: DRE BUTLER MD 12/02/21 1245 Reviewed: Reviewed by Me Diagonstic Imaging: Xray Plain Films/CT/US/NM/MRI: chest Comments [facility] [place] NAME: FELIPE LÓPEZ [facility] REC#: [id number] PT STATUS: REG ER : 1965 PHYSICIAN: ILIA MONTERO APRN ADMIT DATE: 12/02/21/ER Signed Date of Exam:12/02/21 CHEST 1 VIEW, AP/PA ONLY INDICATION: Chest pain. Frontal chest obtained at 1221 p.m. compared to 02/07/2021 Heart and mediastinal silhouette are normal in appearance. The lungs are clear. There is no pneumothorax or pleural fluid. IMPRESSION: Negative chest. Dictated by: Dictated on workstation # [id number] Dict: 12/02/21 1230 Trans: 12/02/21 1245 [facility] [id number] Interpreted by: DRE BUTLER MD Electronically signed by: DRE BUTLER MD 12/02/21 1245 Departure Impression Primary Impression: Ocular hypertension, bilateral Additional Impression: Paresthesia Disposition: 01 HOME, SELF-CARE Condition: Improved Departure-Patient Inst. Decision time for Depature: 13:24 Referrals: NO,LOCAL PHYSICIAN (PCP/Family) Primary Care Physician Patient Instructions: Glaucoma (DC), LOCAL PHYSICIAN LIST, Paresthesia (DC) Add. Discharge Instructions: Plan: 1. Follow up with Dr. Rubio's office tomorrow at 10:00am, their office is located at [address] [place] [id number] 2. Establish with primary care provider of your choice. You have been provided with a list of local providers. 3. You have been provided with copies of your imaging and basic labs, take this with you to your appointment. 4. Make sure you drink plenty of fluids to stay hydrated while working outside. 5. Return to the ER for any new, concerning, or worsening symptoms (slurred speech, weakness, arm or face) All discharge instructions reviewed with patient and/or family. Voiced under standing. ILIA MONTERO BEAD WRAPPER Dec 02, 2021 11:38
[2021-12-02 11:44] LABS: BAND NEUTROPHILS 2 %; BASOPHILS % (MANUAL) 0 %; EOSINOPHILS % (MANUAL) 2 %; LYMPHOCYTES % (MANUAL) 18 %; MONOCYTES % (MANUAL) 6 %; NEUTROPHILS % (MANUAL) 72 %; RBC MORPH NORMAL
--- NOTE | 2021-12-02 12:22 | Diagnostic Imaging Report ---
INDICATION: Numbness and lightheadedness and tunnel vision. TECHNIQUE: Multiple contiguous axial images were obtained through the brain without the use of intravenous contrast. Auto Exposure Controls were utilized during the CT exam to meet ALARA standards for radiation dose reduction. There is no prior head CT for comparison. FINDINGS: There were no extra-axial fluid collections. No intracranial hemorrhage. No intracranial mass or mass effect. No midline shift. The ventricles are normal in size and position. There were no focal parenchymal abnormalities in the brain. Calvarial windows are unremarkable. Visualized portions of the orbits and sinuses are unremarkable. IMPRESSION: Negative noncontrast brain CT. Dictated by: Dictated on workstation # [id number]
--- NOTE | 2021-12-02 12:32 | Diagnostic Imaging Report ---
INDICATION: Chest pain. Frontal chest obtained at 1221 p.m. compared to 02/07/2021 Heart and mediastinal silhouette are normal in appearance. The lungs are clear. There is no pneumothorax or pleural fluid. IMPRESSION: Negative chest. Dictated by: Dictated on workstation # [id number]
[2021-12-02] MEDS ORDERED: TETRACAINE 0.5% OPHTH SOLN 4 ML BTL (SINGLE DOSE ONLY) OU ONE (13:15)
[2021-12-02 13:44] VITALS: BP 130/78
== END 2021-12-02 13:48 | disposition home or self-care (01) ==
LOC: EDUNIT# 10:47 → ER 10:49
DX: R20.2 Paresthesia of skin (principal); H40.053 Ocular hypertension, bilateral
CPT/HCPCS: 36415; 70450; 71045; 80053; 82607; 82947; 83036; 83735; 83874; 84443; 84484; 85007; 85027; 85379; 85610; 85652; 85730; 93005; 93041